=== PATIENT | female | born 1970 | race African-American/Black ===

== ENCOUNTER 2024-02-29 10:14 | Outpatient (AMB) | payer OTHER, SELFPAY ==
--- NOTE | 2024-02-29 10:13 | MHC.PC.OV ---
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 Intake Note: New patient visit Disability Representative Required: No Allergies No Known Allergies Allergy (Verified 02/29/24 10:13) Medication List - Last Reconciled 02/29/24 by Ronda Perera PA-C hydrochlorothiazide 12.5 mg PO DAILY tirzepatide (weight loss) (Zepbound) mg subcut Tobacco use date assessed: 02/29/24 Dental Screening Dental Screen Date: 02/29/24 Did you have a dental visit in the last 12 months?: Yes Did you have a dental problem in the last 6 months where you did not have access to dental care?: No Was dental information given to patient?: Patient has dentist 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 She is transferring from [facility] and was last seen by myself in August. I had tried ordering her Mounjaro, Ozempic and will go away all of which were denied. She was ultimately referred to the weight loss center and started on Zepbound. She has been on this since October and she has lost 35 lb. She is tolerating this very well. Her goal is to lose 50 lb. CV: Blood pressure today in the office is 102/74. She is on hydrochlorothiazide 12.5 mg. Colonoscopy: 10/01/2020, due in 2026 Mammogram: August 2023- utd, follows with [facility] Pap: UTD, [facility] in Nov 2022- due in 5 years, just got IUD out Mother has a hx of lung and breast ca. Pt has been referred to genetics. 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 Exercising and eating healthy. Daughter is getting in March. [facility] Medical History (Updated 02/29/24 @ 11:32 by Ronda Perera PA-C) Anemia Vitamin D deficiency Tubular adenoma of colon Obesity with serious comorbidity Microcalcifications of the breast Hyperthyroidism HTN (hypertension) Surgical History (Updated 02/29/24 @ 10:17 by Meghann Bernal CMA) History of colonoscopy Family History (Updated 02/29/24 @ 10:18 by Meghann Bernal CMA) Mother Breast cancer Father Hypertension Sister Hypertension Social History Housing: House Patient Tobacco Use Status: Never used Tobacco e-Cigarette/Vaping Use: Never Used Second Hand Smoke Exposure: No service: No Current occupational status: employed 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 1. Little interest or pleasure in doing things: not at all 2. Feeling down, depressed, or hopeless: not at all 3. Trouble falling or staying asleep, or sleeping too much: not at all 4. Feeling tired or having little energy: not at all 5. Poor appetite or overeating: not at all 6. Feeling bad about yourself - or that you are a failure or have let yourself or your family down: not at all 7. Trouble concentrating on things, such as reading the newspaper or watching television: not at all 8. Moving or speaking so slowly that other people could have noticed. Or the opposite - being so fidgety or restless that you have been moving around a lot more than usual: not at all 9. Thoughts that you would be better off or of hurting yourself in some way: not at all Total score: 0 Depression Screening Interpretation: Negative Depression Screening Done: Yes [id number] - PHQ-9 Billing: Yes Source: Developed by Drs. Alber Jimenez, Mariella Barrientos, Speedy Calvin and colleagues, with an educational manuel from [employer]. Thrive Questionnaire Date Thrive assessed: 02/29/24 I am a: Patient What is your living situation today?: I have a steady place to live Within the past 12 months, did the food you bought not last and you didn't have the money to get more?: Never true Within the past 12 months, did you worry whether your food would run out before you got money to buy more?: Never true Do you have trouble paying for medicines?: No Do you have trouble getting transportation to medical appointments?: No Do you have trouble paying your heating and electricity bill?: No Do you have trouble taking care of your child, family member or friend?: No Do you have trouble with day-to-day activities such as bathing, preparing meals, shopping, managing finances, etc.?: No Are you currently unemployed and looking for a job?: No Are you interested in more education?: No Please select the resources that you would like help with: None Currently or been in a relationship where the following occur: no concerns reported THRIVE Score: 0 AUDIT C Alcohol Use Questionnaire (AUDIT-C) 1. How often do you have a drink containing alcohol?: Monthly or less 2. How many drinks containing alcohol do you have on a typical day when you are drinking?: 1 or 2 3. How often do you have six or more drinks on one occasion?: Never Total Score: 1 Score Reviewed/Action Taken: Yes EVER-7 AMB Questionnaire EVER-7 Date EVER - 7 assessed: 02/29/24 Feeling nervous, anxious, or on edge: 0 = Not at all Not being able to stop or control worryin = Not at all Worrying too much about different things: 0 = Not at all Trouble relaxin = Not at all Being so restless that it is hard to sit still: 0 = Not at all Becoming easily annoyed or irritable: 0 = Not at all Feeling afraid as if something awful might happen: 0 = Not at all Total EVER-7 score (0-4 normal; 5-9 mild; 10-14 moderate; 15-21 severe): 0 Source: Developed by Drs. Alber Jimenez, Mariella Barrientos, Speedy Calvin and colleagues, with an educational manuel from [employer]. EVER-7 Assessment Billing EVER-7 Assessment Tool: EVER-7 Assessment 50236 Physical exam (Primary Care) Vital Signs: Last Vital Signs Temp 98.4 F 02/29/24 10:27 Pulse 87 02/29/24 10:27 Resp 14 02/29/24 10:27 BP 102/74 02/29/24 10:27 Pulse Ox 100 02/29/24 10:27 Oxygen Delivery Method Room Air 02/29/24 10:27 BMI result Body Mass Index 31.4 Tobacco/Smoking Status: Tobacco use Status Tobacco use date assessed 02/29/24 02/29/24 10:18 Patient Tobacco Use Status Never used Tobacco 02/29/24 10:18 e-Cigarette/Vaping Use Never Used 02/29/24 10:18 Depression Screening Interpretation: Negative Currently or been in a relationship where the following occur: no concerns reported Const Orientation/consciousness: patient oriented x3 HENMT Ears: hearing grossly normal bilaterally and TM's normal bilaterally General nose exam: No nasal polyps present Face and sinus: Yes sinuses nontender Mouth: Normal oral and palatal mucosa present Eyes Pupils: Equal, round and reactive pupils present EOM: EOMs intact bilaterally Neck Neck: Yes full ROM and Yes no lymphadenopathy Thyroid: Thyroid normal Chest Chest palpation & inspection: normal inspection of the chest Resp Auscultation: clear to auscultation bilaterally Cardio Rate: regular rate Rhythm: regular rhythm Heart sounds: S1 normal heart sound present and S2 normal heart sound present Peripheral pulses: Peripheral pulses 2+ throughout GI Other: Soft, nontender Auscultation: normal bowel sounds Rectal Exam - Female: deferred General: Yes no CVA tenderness Back/Spine/Pelvis Other: Nontender Back: no CVA tenderness Skin General skin exam: no rashes or lesions noted Neuro General: patient oriented x3, gait normal, CN's II-XI intact bilaterally and deep tendon reflexes 2+ bilaterally Cranial nerves: Yes Equal, round and reactive pupils present Motor exam (neuro): 5/5 motor strength present throughout Sensory Exam: double simultaneous stimulation for sensation normal Coordination: [id number] test normal and Romberg test negative Extrem General: Yes normal to inspection and Yes full ROM Psych Affect: normal affect Attitude: cooperative Thought process: Normal thought process present Thought content: Normal thought content present Insight: Good insight present (Psych) Judgement: Good judgement present (Psych) Assessment and Plan Assessment & Plan (1) Routine general medical examination at a health care facility: Code(s): Z00.00 - Encounter for general adult medical examination without abnormal findings Plan: reviewed labs ordered discussed f/u with genetics (2) HTN (hypertension): Code(s): I10 - Essential (primary) hypertension Qualifiers: Hypertension type: primary hypertension Qualified Code(s): I10 - Essential (primary) hypertension Plan: wnl. continue current plan. monitor at home with weight loss discussed possibly needing to d/c med (3) Vitamin D deficiency: Code(s): E55.9 - Vitamin D deficiency, unspecified Plan: labs ordered (4) Anemia: Code(s): D64.9 - Anemia, unspecified Qualifiers: Anemia type: unspecified type Qualified Code(s): D64.9 - Anemia, unspecified Plan: last labs showed mild anemia. will repeat Orders: Orders Comprehensive [place]. Panel Fast Today D64.9 - Anemia, unspecified, E55.9 - Vitamin D deficiency, unspecified, I10 - Essential (primary) hypertension, Z00.00 - Encounter for general adult medical examination without abnormal findings IRON PROFILE Today D64.9 - Anemia, unspecified, E55.9 - Vitamin D deficiency, unspecified, I10 - Essential (primary) hypertension, Z00.00 - Encounter for general adult medical examination without abnormal findings TSH reflex Free T4 Today D64.9 - Anemia, unspecified, E55.9 - Vitamin D deficiency, unspecified, I10 - Essential (primary) hypertension, Z00.00 - Encounter for general adult medical examination without abnormal findings Ferritin Today D64.9 - Anemia, unspecified, E55.9 - Vitamin D deficiency, unspecified, I10 - Essential (primary) hypertension, Z00.00 - Encounter for general adult medical examination without abnormal findings Vitamin B12 and Folate Today D64.9 - Anemia, unspecified, E55.9 - Vitamin D deficiency, unspecified, I10 - Essential (primary) hypertension, Z00.00 - Encounter for general adult medical examination without abnormal findings Complete Blood Count Auto Diff Today D64.9 - Anemia, unspecified, E55.9 - Vitamin D deficiency, unspecified, I10 - Essential (primary) hypertension, Z00.00 - Encounter for general adult medical examination without abnormal findings Lipid Panel Today D64.9 - Anemia, unspecified, E55.9 - Vitamin D deficiency, unspecified, I10 - Essential (primary) hypertension, Z00.00 - Encounter for general adult medical examination without abnormal findings Vitamin D 25-OH Total Today E55.9 - Vitamin D deficiency, unspecified Coding Level of Care Code Est Pt Prev Care 40-64y(99284) Diagnoses Routine general medical examination at a health care facility Z00.00 Primary hypertension I10 Hypertension type: primary hypertension Vitamin D deficiency E55.9 Anemia, unspecified type D64.9 Anemia type: unspecified type Additional Codes EVER-7 Assessment Billing - EVER-7 Assessment Tool: EVER-7 Assessment 57014 ([id number])
[2024-02-29 10:27] VITALS: BP 102/74; PULSE 87; RESP 14; TEMP 36.9; O2SAT 100; BMI 31.4
== END 2024-02-29 11:11 | disposition home or self-care (01) ==
PROVIDERS: PCP Physician Assistant; Visit Provider Physician Assistant
DX: Z00.00 Encounter for general adult medical examination without abnormal findings (principal); I10 Essential (primary) hypertension; E55.9 Vitamin D deficiency, unspecified; D64.9 Anemia, unspecified
CPT/HCPCS: 99386; 99396

== ENCOUNTER 2024-02-29 11:19 | Outpatient (REF) | payer OTHER, SELFPAY ==
[2024-02-29 14:50] LABS: Basophils Percent Auto 0.7 % (0-2); Eosinophils Absolute Auto 0.1 X10*3/uL (0.0-0.4); Eosinophils Percent Auto 1.4 % (0-4); Hematocrit 37.2 % (37.0-47.0); Hemoglobin 12.4 g/dl (12.0-16.0); Imm Gran Abs Auto 0.01 X10*3/uL (0.00-0.03); Imm Gran Pct Auto 0.2 % (0.0-0.4); Lymphocytes Absolute Auto 2.2 X10*3/uL (1.2-4.9); Lymphocytes Percent Auto 37.7 % (20-40); MANUAL DIFF FLAG SCAN; Mean Corpuscular HGB Conc 33.3 g/dl (31.0-35.0); Mean Corpuscular Hemoglobin 29.9 pg (27.0-33.0); Mean Corpuscular Volume 89.6 fL (80.0-98.0); Monocytes Absolute Auto 0.3 X10*3/uL (0.1-1.2); Monocytes Percent Auto 4.7 % (2-11); Neutrophils Absolute Auto 3.3 x10*3/uL (2.0-8.3); Neutrophils Percent Auto 55.3 % (45-73); PLT CLUMP 1; Red Blood Count 4.15 X10*6/uL (4.20-5.50); Red Cell Distribution Width 14.6 % (11.0-16.0); SCAN SMEAR FLAG 1
[2024-02-29 15:28] LABS: Alanine Aminotransferase 14 U/L (0-31); Albumin Level 4.7 g/dL (3.5-5.0); Alkaline Phosphatase 49 U/L (39-117); Anion Gap 17 (12-20); Aspartate Amino Transferase 19 U/L (5-31); Bilirubin Total 0.5 mg/dL (0.0-1.0); Blood Urea Nitrogen 23 mg/dL (9-16); Calcium 10.5 mg/dL (8.4-10.2); Carbon Dioxide 24 mmol/L (22-29); Chloride 104 mmol/L (96-108); Cholesterol 226 mg/dL (<200); Estimated Glomerular Filt Rate 53; Glucose Fasting 71 mg/dL (60-99); HDL Cholesterol 59 mg/dL (>40); Iron 61 mcg/dL (30-160); LDL Cholesterol Calculated 153 mg/dL (<100); Percent Iron Saturation 22 % (15-50); Potassium 3.5 mmol/L (3.3-5.1); Sodium 141 mmol/L (135-145); Total Iron Binding Capacity 273 mcg/dL (228-428); Total Protein 8.5 g/dL (6.5-8.0); Triglycerides 72 mg/dL (<150); Unsaturated Iron Binding 212 ug/dL
[2024-02-29 15:47] LABS: Ferritin 343 ng/mL (10-250); TSH reflex Free T4 1.21 uIU/mL (0.32-4.0); Vitamin D 25-OH Total 43.4 ng/mL (>30)
[2024-02-29 15:50] LABS: Folate 7.4 ng/mL (> or = 4.0); Mean Platelet Volume 12.9 fL (9.4-12.3); Platelet Count 193 X10*3/uL (160-400); Vitamin B12 488 pg/mL (200-900); White Blood Count 5.9 X10*3/uL (4.8-10.8)
[2024-02-29 15:51] LABS: SLIDE REVIEW VERIFIED
== END 2024-02-29 11:20 | disposition home or self-care (01) ==
LOC: HO.WFDLDS 11:19
PROVIDERS: Visit Provider Physician Assistant
DX: Z00.00 Encounter for general adult medical examination without abnormal findings (principal); D64.9 Anemia, unspecified; I10 Essential (primary) hypertension; E55.9 Vitamin D deficiency, unspecified
CPT/HCPCS: 36415; 80053; 80061; 82306; 82607; 82728; 82746; 83540; 84443; 85025

== ENCOUNTER 2024-06-12 12:56 | Outpatient (AMB) | payer OTHER, SELFPAY ==
--- NOTE | 2024-06-12 13:01 | MHC.PC.OV ---
Vital Signs 06/12/24 13:06 Height 5 ft 2.24 in Weight 155 lb 6 oz BMI 28.2 BP 104/68 Blood Pressure Location Rt brachial Position Sitting Respiration 12 Pulse 86 Pulse Source Pulse Oximeter Temp 99.7 F Temp Source Oral Pulse Oximetry (%) 97 Oxygen Delivery Method Room Air Intake Visit Reasons: Stomach issues Allergies No Known Allergies Allergy (Verified 02/29/24 10:13) Medication List - Last Reconciled 06/12/24 by Ronda Perera PA-C hydrochlorothiazide 12.5 mg PO DAILY tirzepatide (weight loss) (Zepbound) mg subcut Tobacco use date assessed: 02/29/24 Dental Screening Dental Screen Date: 02/29/24 HPI Stomach issues HPI Details Patient is a 54-year-old female who presents today for an acute visit regarding abdominal pain. She states stomach started bothering her yesterday morning and got worse as the day went on. She had to go home from work. She states when she gets the pain it comes in waves for a few minutes and feels intense like labor pains. She states the pain lasts for a few minutes like intense cramping throughout her abdomen then it subsides for a few minutes and returns. No associated bowel movements. She denies any n/v/ diarrhea or constipation. She does note decreased appetite. She states she went to urgent care yesterday. She had a urine test which was neg per pt. She states the pain is in the mid abdomen. No flank pain. Last bowel movement was yesterday afternoon and normal for her. No fever. She did have a little bit of chills yesterday. No muscle aches. She states that this happened last month and the month before. The pain has subsided today but still is present. She has not eaten much besides a saltine cracker and a pickle. colonoscopy UTD. [facility] UTD in October. Her last labs did show a decreased kidney function, elevated calcium, elevated protein and ferritin. She was supposed to return to get these done but states that she forgot. She has been followed with the weight loss clinic and has been on Zepbound x 9 months and is taking it every other week on maintenance dosage. She has further lost another 20 lbs since I last saw her. CV: Blood pressure today in the office is 102/68. She is currently on hydrochlorothiazide 12.5 mg. PFSH Medical History (Updated 06/12/24 @ 13:21 by Ronda Perera PA-C) Obesity due to excess calories with serious comorbidity Dyslipidemia Anemia Vitamin D deficiency Tubular adenoma of colon Obesity with serious comorbidity Microcalcifications of the breast Hyperthyroidism HTN (hypertension) Surgical History (Updated 02/29/24 @ 10:17 by Meghann Bernal CMA) History of colonoscopy Family History (Updated 02/29/24 @ 10:18 by Meghann Bernal CMA) Mother Breast cancer Father Hypertension Sister Hypertension Social History Housing: House Patient Tobacco Use Status: Never used Tobacco e-Cigarette/Vaping Use: Never Used Second Hand Smoke Exposure: No service: No Current occupational status: employed 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 1. Little interest or pleasure in doing things: not at all 2. Feeling down, depressed, or hopeless: not at all 3. Trouble falling or staying asleep, or sleeping too much: not at all 4. Feeling tired or having little energy: not at all 5. Poor appetite or overeating: not at all 6. Feeling bad about yourself - or that you are a failure or have let yourself or your family down: not at all 7. Trouble concentrating on things, such as reading the newspaper or watching television: not at all 8. Moving or speaking so slowly that other people could have noticed. Or the opposite - being so fidgety or restless that you have been moving around a lot more than usual: not at all 9. Thoughts that you would be better off or of hurting yourself in some way: not at all Total score: 0 Source: Developed by Drs. Alber Jimenez, Mariella Barrientos, Speedy Calvin and colleagues, with an educational manuel from [employer]. Thrive Questionnaire Date Thrive assessed: 02/29/24 I am a: Patient What is your living situation today?: I have a steady place to live Within the past 12 months, did the food you bought not last and you didn't have the money to get more?: Never true Within the past 12 months, did you worry whether your food would run out before you got money to buy more?: Never true Do you have trouble paying for medicines?: Yes Do you have trouble getting transportation to medical appointments?: No Do you have trouble paying your heating and electricity bill?: No Do you have trouble taking care of your child, family member or friend?: No Do you have trouble with day-to-day activities such as bathing, preparing meals, shopping, managing finances, etc.?: No Are you currently unemployed and looking for a job?: No Are you interested in more education?: No Please select the resources that you would like help with: None Currently or been in a relationship where the following occur: No concerns reported THRIVE Score: 0 AUDIT C Alcohol Use Questionnaire (AUDIT-C) 1. How often do you have a drink containing alcohol?: Monthly or less 2. How many drinks containing alcohol do you have on a typical day when you are drinking?: 1 or 2 3. How often do you have six or more drinks on one occasion?: Never Total Score: 1 EVER-7 AMB Questionnaire EVER-7 Date EVER - 7 assessed: 02/29/24 Feeling nervous, anxious, or on edge: 0 = Not at all Not being able to stop or control worryin = Not at all Worrying too much about different things: 0 = Not at all Trouble relaxin = Not at all Being so restless that it is hard to sit still: 0 = Not at all Becoming easily annoyed or irritable: 0 = Not at all Feeling afraid as if something awful might happen: 0 = Not at all Total EVER-7 score (0-4 normal; 5-9 mild; 10-14 moderate; 15-21 severe): 0 Source: Developed by Drs. Alber Jimenez, Mariella Barrientos, Speedy Calvin and colleagues, with an educational manuel from [employer]. Physical exam (Primary Care) Tobacco/Smoking Status: Tobacco use Status Tobacco use date assessed 02/29/24 02/29/24 10:18 Patient Tobacco Use Status Never used Tobacco 02/29/24 10:18 e-Cigarette/Vaping Use Never Used 02/29/24 10:18 Thrive Assessment: Date of Thrive Assessment Date Thrive assessed 02/29/24 02/29/24 11:20 Currently or been in a relationship where the following occur: No concerns reported Const Orientation/consciousness: patient oriented x3 HENMT Ears: hearing grossly normal bilaterally Neck Thyroid: Thyroid normal Lymphatic: no lymphadenopathy noted Resp Auscultation: clear to auscultation bilaterally Cardio Rate: regular rate Rhythm: regular rhythm Heart sounds: S1 normal heart sound present and S2 normal heart sound present GI Inspection: Yes normal to inspection Palpation (GI): Soft to palpation and Other GI palpation findings present (nontender, no cva tenderness) Auscultation: normoactive bowel sounds Rectal Exam - Female: deferred Skin General skin exam: no rashes or lesions noted Neuro General: patient oriented x3, gait normal and no focal motor deficits Results Reviewed Results Reviewed: Laboratory Tests 02/29/24 11:20 WBC 5.9 RBC 4.15 L Hgb 12.4 Hct 37.2 Plt Count 193 Sodium 141 Potassium 3.5 Chloride 104 Carbon Dioxide 24 Anion Gap 17 Creatinine 1.07 Estimated GFR 53 Fasting Glucose 71 Calcium 10.5 H Iron 61 TIBC 273 % Saturation 22 Unsat Iron Binding 212 Ferritin 343 H Total Bilirubin 0.5 AST 19 ALT 14 Alkaline Phosphatase 49 Total Protein 8.5 H Albumin 4.7 TSH 1.21 Assessment and Plan Assessment & Plan (1) HTN (hypertension): Code(s): I10 - Essential (primary) hypertension Qualifiers: Hypertension type: primary hypertension Qualified Code(s): I10 - Essential (primary) hypertension Plan: d/c hctz given weight loss and lower bps return 1 month to be reassessed (2) Decreased GFR: Code(s): R94.4 - Abnormal results of kidney function studies Plan: bmp was ordered and advised to get this done today will check urine (3) Hypercalcemia: Code(s): E83.52 - Hypercalcemia Plan: advised to repeat labs today (4) Generalized abdominal pain: Code(s): R10.84 - Generalized abdominal pain Plan: Pain is improved today. She still has small waves of the pain. I have ordered a CT of the abdomen and pelvis given that this has happened a few times now. Labs ordered today. We will follow up pending test results. We did discuss coming off of Zepbound to see if that helps. We will follow up pending test results. She will return in 1 month. Sooner if needed. Patient understands and agrees with the plan. Orders: Orders Microalbumin, Random (w Creat) Today E83.52 - Hypercalcemia, I10 - Essential (primary) hypertension, R94.4 - Abnormal results of kidney function studies TSH reflex Free T4 Today E83.52 - Hypercalcemia, I10 - Essential (primary) hypertension, R94.4 - Abnormal results of kidney function studies Vitamin D 1,25 dihydroxy Today E83.52 - Hypercalcemia, I10 - Essential (primary) hypertension, R94.4 - Abnormal results of kidney function studies CT abdomen pelvis wo/w IV con Today R10.84 - Generalized abdominal pain Lipase Today R10.84 - Generalized abdominal pain Complete Blood Count Auto Diff Today E83.52 - Hypercalcemia, I10 - Essential (primary) hypertension, R94.4 - Abnormal results of kidney function studies Ferritin Today E83.52 - Hypercalcemia, I10 - Essential (primary) hypertension, R94.4 - Abnormal results of kidney function studies Basic Metabolic Panel Today E83.52 - Hypercalcemia, I10 - Essential (primary) hypertension, R94.4 - Abnormal results of kidney function studies Liver Panel Today E83.52 - Hypercalcemia, I10 - Essential (primary) hypertension, R79.89 - Other specified abnormal findings of blood chemistry, R94.4 - Abnormal results of kidney function studies Calcium, Ionized Today E83.52 - Hypercalcemia, I10 - Essential (primary) hypertension, R94.4 - Abnormal results of kidney function studies Parathyroid Hormone Intact Today E83.52 - Hypercalcemia, I10 - Essential (primary) hypertension, R94.4 - Abnormal results of kidney function studies Medications: Discontinued hydrochlorothiazide Discontinued Reason: Doctor's Order 12.5 mg PO DAILY 90 tabs 3RF Coding Level of Care Code Est Pt Level 4 (56281) Complex EM visit Add On G2211 Diagnoses Primary hypertension I10 Hypertension type: primary hypertension Decreased GFR R94.4 Hypercalcemia E83. Generalized abdominal pain R10.84
--- NOTE | 2024-06-12 13:02 | MHC.PC.OV ---
Vital Signs 06/12/24 13:06 Height 5 ft 2.24 in Weight 155 lb 6 oz BMI 28.2 BP 104/68 Blood Pressure Location Rt brachial Position Sitting Respiration 12 Pulse 86 Pulse Source Pulse Oximeter Temp 99.7 F Temp Source Oral Pulse Oximetry (%) 97 Oxygen Delivery Method Room Air Intake Visit Reasons: Stomach issues Intake Note: Sharp pain in stomach. Went to Urgent care and had no UTI. Powerhouse Tender Required: No Is last menstrual period known: No Allergies No Known Allergies Allergy (Verified 02/29/24 10:13) Tobacco use date assessed: 02/29/24 Dental Screening Dental Screen Date: 02/29/24 [facility] Medical History (Updated 03/06/24 @ 08:11 by Ronda Perera PA-C) Obesity due to excess calories with serious comorbidity Dyslipidemia Anemia Vitamin D deficiency Tubular adenoma of colon Obesity with serious comorbidity Microcalcifications of the breast Hyperthyroidism HTN (hypertension) Surgical History (Updated 02/29/24 @ 10:17 by Meghann Bernal CMA) History of colonoscopy Family History (Updated 02/29/24 @ 10:18 by Meghann Bernal CMA) Mother Breast cancer Father Hypertension Sister Hypertension Social History Housing: House Patient Tobacco Use Status: Never used Tobacco e-Cigarette/Vaping Use: Never Used Second Hand Smoke Exposure: No service: No Current occupational status: employed 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 1. Little interest or pleasure in doing things: not at all 2. Feeling down, depressed, or hopeless: not at all 3. Trouble falling or staying asleep, or sleeping too much: not at all 4. Feeling tired or having little energy: not at all 5. Poor appetite or overeating: not at all 6. Feeling bad about yourself - or that you are a failure or have let yourself or your family down: not at all 7. Trouble concentrating on things, such as reading the newspaper or watching television: not at all 8. Moving or speaking so slowly that other people could have noticed. Or the opposite - being so fidgety or restless that you have been moving around a lot more than usual: not at all 9. Thoughts that you would be better off or of hurting yourself in some way: not at all Total score: 0 Source: Developed by Drs. Alber Jimenez, Mariella Barrientos, Speedy Calvin and colleagues, with an educational manuel from [employer]. Thrive Questionnaire Date Thrive assessed: 02/29/24 I am a: Patient What is your living situation today?: I have a steady place to live Within the past 12 months, did the food you bought not last and you didn't have the money to get more?: Never true Within the past 12 months, did you worry whether your food would run out before you got money to buy more?: Never true Do you have trouble paying for medicines?: Yes Do you have trouble getting transportation to medical appointments?: No Do you have trouble paying your heating and electricity bill?: No Do you have trouble taking care of your child, family member or friend?: No Do you have trouble with day-to-day activities such as bathing, preparing meals, shopping, managing finances, etc.?: No Are you currently unemployed and looking for a job?: No Are you interested in more education?: No Please select the resources that you would like help with: None Currently or been in a relationship where the following occur: No concerns reported THRIVE Score: 0 AUDIT C Alcohol Use Questionnaire (AUDIT-C) 1. How often do you have a drink containing alcohol?: Monthly or less 2. How many drinks containing alcohol do you have on a typical day when you are drinking?: 1 or 2 3. How often do you have six or more drinks on one occasion?: Never Total Score: 1 EVER-7 AMB Questionnaire EVER-7 Date EVER - 7 assessed: 02/29/24 Feeling nervous, anxious, or on edge: 0 = Not at all Not being able to stop or control worryin = Not at all Worrying too much about different things: 0 = Not at all Trouble relaxin = Not at all Being so restless that it is hard to sit still: 0 = Not at all Becoming easily annoyed or irritable: 0 = Not at all Feeling afraid as if something awful might happen: 0 = Not at all Total EVER-7 score (0-4 normal; 5-9 mild; 10-14 moderate; 15-21 severe): 0 Source: Developed by Drs. Alber Jimenez, Mariella Barrientos, Speedy Calvin and colleagues, with an educational manuel from [employer]. Physical exam (Primary Care) Tobacco/Smoking Status: Tobacco use Status Tobacco use date assessed 02/29/24 02/29/24 10:18 Patient Tobacco Use Status Never used Tobacco 02/29/24 10:18 e-Cigarette/Vaping Use Never Used 02/29/24 10:18 Thrive Assessment: Date of Thrive Assessment Date Thrive assessed 02/29/24 02/29/24 11:20 Currently or been in a relationship where the following occur: No concerns reported Coding
[2024-06-12 13:06] VITALS: BP 104/68; PULSE 86; RESP 12; TEMP 37.6; O2SAT 97; BMI 28.2
== END 2024-06-12 15:18 | disposition home or self-care (01) ==
PROVIDERS: PCP Physician Assistant; Visit Provider Physician Assistant
DX: I10 Essential (primary) hypertension (principal); R94.4 Abnormal results of kidney function studies; E83.52 Hypercalcemia; R10.84 Generalized abdominal pain
CPT/HCPCS: 99214

== ENCOUNTER 2024-06-12 13:28 | Outpatient (REF) | payer OTHER, SELFPAY ==
[2024-06-12 15:04] LABS: Parathyroid Hormone Intact 70.3 pg/mL (8.7-77.1)
[2024-06-12 15:21] LABS: Alanine Aminotransferase 16 U/L (0-31); Albumin Level 4.5 g/dL (3.5-5.0); Alkaline Phosphatase 51 U/L (39-117); Anion Gap 16 (12-20); Aspartate Amino Transferase 15 U/L (5-31); Bilirubin Direct 0.1 mg/dL (0.0-0.5); Bilirubin Total 0.4 mg/dL (0.0-1.0); Blood Urea Nitrogen 17 mg/dL (9-16); Calcium 10.5 mg/dL (8.4-10.2); Carbon Dioxide 25 mmol/L (22-29); Chloride 101 mmol/L (96-108); Estimated Glomerular Filt Rate 48; Glucose Random 94 mg/dL (60-115); Lipase 32 U/L (8-78); Potassium 3.6 mmol/L (3.3-5.1); Sodium 138 mmol/L (135-145); Total Protein 8.3 g/dL (6.5-8.0)
[2024-06-12 15:23] LABS: Ferritin 376 ng/mL (10-250); TSH reflex Free T4 1.28 uIU/mL (0.32-4.0)
[2024-06-12 18:09] LABS: Microalbum/Creatinine Ratio Ur 9.1 ug/mg cr (<30)
[2024-06-14 15:59] LABS: Calcium, Ionized 5.3 mg/dL (4.7-5.5)
[2024-06-16 15:28] LABS: VITAMIN D (1,25 OH) D3 32 pg/mL; Vit D (1,25-Dihydroxy) Total 32 pg/mL (18-72); Vitamin D (1,25 OH) D2 <8 pg/mL
== END 2024-06-12 13:29 | disposition home or self-care (01) ==
LOC: HO.WFDLDS 13:28
PROVIDERS: Visit Provider Physician Assistant
DX: I10 Essential (primary) hypertension (principal); R94.4 Abnormal results of kidney function studies; E83.52 Hypercalcemia; R79.89 Other specified abnormal findings of blood chemistry; R10.84 Generalized abdominal pain
CPT/HCPCS: 36415; 80048; 80076; 82043; 82330; 82570; 82652; 82728; 83690; 83970; 84443

== ENCOUNTER 2024-06-19 16:03 | Outpatient (REF) | payer OTHER, SELFPAY ==
[2024-06-19 16:28] LABS: MANUAL DIFF FLAG NO
[2024-06-19 17:24] LABS: Basophils Percent Auto 0.5 % (0-2); Eosinophils Absolute Auto 0.1 X10*3/uL (0.0-0.4); Eosinophils Percent Auto 1.4 % (0-4); Hematocrit 34.1 % (37.0-47.0); Imm Gran Abs Auto 0.03 X10*3/uL (0.00-0.03); Imm Gran Pct Auto 0.4 % (0.0-0.4); Lymphocytes Absolute Auto 2.3 X10*3/uL (1.2-4.9); Lymphocytes Percent Auto 30.9 % (20-40); Mean Corpuscular HGB Conc 32.3 g/dl (31.0-35.0); Mean Platelet Volume 12.7 fL (9.4-12.3); Monocytes Absolute Auto 0.4 X10*3/uL (0.1-1.2); Monocytes Percent Auto 5.2 % (2-11); Neutrophils Absolute Auto 4.5 x10*3/uL (2.0-8.3); Neutrophils Percent Auto 61.6 % (45-73); Platelet Count 174 X10*3/uL (160-400); Red Blood Count 3.79 X10*6/uL (4.20-5.50); Red Cell Distribution Width 14.4 % (11.0-16.0); White Blood Count 7.4 X10*3/uL (4.8-10.8)
== END 2024-06-19 16:04 | disposition home or self-care (01) ==
LOC: HO.LAB 16:03
PROVIDERS: PCP Physician Assistant; Visit Provider Physician Assistant
DX: R94.4 Abnormal results of kidney function studies (principal); E83.52 Hypercalcemia; I10 Essential (primary) hypertension
CPT/HCPCS: 36415; 85025

== ENCOUNTER 2024-07-02 08:12 | Outpatient (REF) | payer OTHER, SELFPAY ==
--- NOTE | ~2024-07-02 | US_ITS ---
EXAMINATION: US ABDOMEN COMPLETE CLINICAL INFORMATION: Generalized abdominal pain. COMPARISON: None available. TECHNIQUE: Real-time imaging of the abdominal viscera. FINDINGS: PANCREAS: Normal. ABDOMINAL AORTA: The proximal, mid, and distal segments are normal in caliber. INFERIOR VENA CAVA: Visualized portions are normal. LIVER: The liver is normal in size. The liver contour is normal. Parenchymal echogenicity is normal. A 1.5 x 1.2 x 1.5 cm echogenic mass in the liver with ultrasound characteristics suggestive of a benign cavernous hemangioma. There is no intrahepatic biliary duct dilatation seen. GALLBLADDER: Normal. The gallbladder is physiologically distended without evidence of stones, sludge, polyps, wall thickening or pericholecystic fluid. COMMON BILE DUCT: Normal in caliber measuring 0.2 cm in diameter. RIGHT KIDNEY: Normal. No hydronephrosis. No renal calculi or focal parenchymal lesions. The kidney measures 10.2 cm in maximum dimension. LEFT KIDNEY: Normal. No hydronephrosis. No renal calculi or focal parenchymal lesions. The kidney measures 8.7 cm in maximum dimension. SPLEEN: Normal. The spleen measures 7.4 cm in maximum dimension. FREE FLUID: None. US/US abdomen complete IMPRESSION: 1. A cause for the patient's abdominal pain has not been found. 2. Incidental note made of a 1.5 cm echogenic mass in the liver with ultrasound characteristics suggestive of a benign cavernous hemangioma. If confirmation is needed, MRI could be performed. Electronically signed by: Raghav Jara MD 08/15/2024 01:46 PM [facility] [place]
== END 2024-07-02 08:13 | disposition home or self-care (01) ==
LOC: HO.US 08:12
PROVIDERS: PCP Physician Assistant; Visit Provider Physician Assistant
DX: R10.84 Generalized abdominal pain (principal); R94.4 Abnormal results of kidney function studies
CPT/HCPCS: 76700

== ENCOUNTER 2024-07-11 10:05 | Outpatient (AMB) | payer OTHER, SELFPAY ==
--- NOTE | 2024-07-11 10:18 | HO.NEPHOV ---
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 She is 54 years of age who has been in good health. She had high BMI and had hypertension at that time. She was taking hydrochlorothiazide and monitors her blood pressure closely at home. She is not a diabetic and does not have any retinopathy, proteinuria or neuropathy. She has been on Zepbound and has lost significant amount of weight. Her blood pressure started dropping with weight loss and her hydrochlorothiazide recently has been discontinued. She denies any carotid artery disease, CVA, ANDRES, PAD, CAD or CHF. She does not take any excessive nonsteroidal anti-inflammatories. She has no history of dry eyes and dry mouth or generalized joint pains. She does not get recurrent urinary infections. She has not taken any antibiotics recently. She tries to maintain good hydration. She has no hearing issues, sinusitis, epistaxis, photosensitivity, urinary symptoms, history of renal calculus, flank pain, new bone pain. She has no history of hypercalcemia. She is concerned about her rising serum creatinine . She mentioned that she had an ultrasound of her abdomen recently, results of which were not available at the time this visit. She is clinically well and was without any specific complaints [facility] Medical History (Updated 07/11/24 @ 10:49 by Elvis Faustin MD) Obesity due to excess calories with serious comorbidity Dyslipidemia Anemia Vitamin D deficiency Tubular adenoma of colon Obesity with serious comorbidity Microcalcifications of the breast Hyperthyroidism HTN (hypertension) Surgical History History of colonoscopy Family History Mother Breast cancer Father Hypertension Sister Hypertension Social History Housing: House Patient Tobacco Use Status: Never used Tobacco e-Cigarette/Vaping Use: Never Used Second Hand Smoke Exposure: No service: No Current occupational status: employed 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 [employer] Current occupational exposures/hazards: No Cognitive needs: No Hearing needs: No Vision needs: No Review of Systems Const All systems reviewed & are unremarkable except as noted in HPI and below Physical Exam Vital Signs: Last Vital Signs BP 132/80 07/11/24 10:19 BMI result Body Mass Index 28.9 Const General: comfortable and no acute distress Orientation/consciousness: patient oriented x3 HEENT Head: Yes normocephalic Mouth: Normal oral and palatal mucosa present Eyes EOM: EOMs intact bilaterally Neck Neck: Yes supple Resp Auscultation: clear to auscultation bilaterally Cardio Jugular venous distension: no JVD Rate: regular rate GI Palpation (GI): Soft to palpation Auscultation: normal bowel sounds General: Yes no CVA tenderness Back/Spine/Pelvis Back: no CVA tenderness Skin General skin exam: no rashes or lesions noted Neuro General: patient oriented x3 and moves all extremities Extrem General: Yes no pedal edema Results Reviewed Nephrology Results: Hgb 11.0 g/dl (12.0-16.0) L 06/19/24 WBC 7.4 X10*3/uL (4.8-10.8) 06/19/24 Plt Count 174 X10*3/uL (160-400) 06/19/24 Sodium 138 mmol/L (135-145) 06/12/24 Potassium 3.6 mmol/L (3.3-5.1) 06/12/24 Chloride 101 mmol/L (96-108) 06/12/24 Carbon Dioxide 25 mmol/L (22-29) 06/12/24 BUN 17 mg/dL (9-16) H 06/12/24 Creatinine 1.17 mg/dL (0.5-1.4) 06/12/24 Calcium 10.5 mg/dL (8.4-10.2) H 06/12/24 PTH Intact 70.3 pg/mL (8.7-77.1) 06/12/24 Urine Creatinine 230.30 mg/dL 06/12/24 Assessment & Plan Assessment & Plan (1) High serum creatine: Code(s): R79.89 - Other specified abnormal findings of blood chemistry Category: Medical Plan Vicky likely had mild GLADYS due to tubular injury sometime ago. Her thiazide has been discontinued. She is not known to have any proteinuria even when her BMI has been high. She has been on Zepbound which can cause GLADYS due to volume depletion and resultant tubular injury. She does not take any excessive nonsteroidal inflammatories. She denies any proteinuria, microscopic hematuria or pedal edema. She denied retinopathy. She has good urine output and there is no reason to suspect any obstructive uropathy. She has no history of renal calculus. She had a renal ultrasound, results of which were pending at the time of this office visit. I asked her to cut down sodium in the diet and maintain good hydration. I have ordered repeat renal functions and creatinine clearance. I did not make any medication changes today. She should continue to hold her Zepbound for now. Time spent retrieving all her past medical records, patient encounter and documentation 52 minutes. All questions answered. Follow-up appointment given. Orders: Orders Electrolytes 3 Weeks - Other specified abnormal findings of blood chemistry Creatinine Clearance Urine 24U 3 Weeks - Other specified abnormal findings of blood chemistry Creatinine 3 Weeks - Other specified abnormal findings of blood chemistry Blood Urea Nitrogen 3 Weeks - Other specified abnormal findings of blood chemistry Coding Level of Care Code New Pt Level 5 (55387) Diagnoses High serum creatine .
[2024-07-11 10:19] VITALS: BP 132/80; BMI 28.9
== END 2024-07-11 10:58 | disposition home or self-care (01) ==
PROVIDERS: PCP Physician Assistant; Visit Provider Internal Medicine Nephrology
DX: R79.89 Other specified abnormal findings of blood chemistry (principal)
CPT/HCPCS: 99204

== ENCOUNTER → 2024-07-11 10:05 | Outpatient (BNVA) | payer OTHER, SELFPAY | PROVIDERS: PCP Physician Assistant; Visit Provider Internal Medicine Nephrology ==

== ENCOUNTER 2024-07-27 09:10 | Outpatient (REF) | payer OTHER, SELFPAY ==
[2024-07-27 10:02] LABS: Basophils Percent Auto 0.4 % (0-2); Eosinophils Absolute Auto 0.2 X10*3/uL (0.0-0.4); Eosinophils Percent Auto 2.1 % (0-4); Hematocrit 30.9 % (37.0-47.0); Hemoglobin 9.9 g/dl (12.0-16.0); Imm Gran Abs Auto 0.08 X10*3/uL (0.00-0.03); Imm Gran Pct Auto 1.1 % (0.0-0.4); Lymphocytes Absolute Auto 2.4 X10*3/uL (1.2-4.9); Lymphocytes Percent Auto 33.2 % (20-40); MANUAL DIFF FLAG SCAN; Mean Corpuscular Hemoglobin 28.9 pg (27.0-33.0); Mean Corpuscular Volume 90.1 fL (80.0-98.0); Mean Platelet Volume 12.2 fL (9.4-12.3); Monocytes Absolute Auto 0.5 X10*3/uL (0.1-1.2); Monocytes Percent Auto 7.1 % (2-11); Neutrophils Absolute Auto 4.1 x10*3/uL (2.0-8.3); Neutrophils Percent Auto 56.1 % (45-73); PLT CLUMP 1; Red Blood Count 3.43 X10*6/uL (4.20-5.50); Red Cell Distribution Width 14.9 % (11.0-16.0); SCAN SMEAR FLAG 1; White Blood Count 7.3 X10*3/uL (4.8-10.8)
[2024-07-27 10:30] LABS: Alanine Aminotransferase 34 U/L (0-31); Albumin Level 3.9 g/dL (3.5-5.0); Alkaline Phosphatase 55 U/L (39-117); Anion Gap 12 (12-20); Aspartate Amino Transferase 26 U/L (5-31); Bilirubin Direct < 0.2 mg/dL (0.0-0.5); Bilirubin Total 0.2 mg/dL (0.0-1.0); Blood Urea Nitrogen 18 mg/dL (9-16); Calcium 9.2 mg/dL (8.4-10.2); Carbon Dioxide 25 mmol/L (22-29); Chloride 108 mmol/L (96-108); Estimated Glomerular Filt Rate 59; Glucose Random 77 mg/dL (60-115); Iron 53 mcg/dL (30-160); Percent Iron Saturation 23 % (15-50); Potassium 4.1 mmol/L (3.3-5.1); Sodium 141 mmol/L (135-145); Total Iron Binding Capacity 233 mcg/dL (228-428); Unsaturated Iron Binding 180 ug/dL
[2024-07-27 10:31] LABS: Anion Gap 12 (12-20); Blood Urea Nitrogen 18 mg/dL (9-16); Carbon Dioxide 26 mmol/L (22-29); Chloride 108 mmol/L (96-108); Estimated Glomerular Filt Rate 59; Platelet Count 162 X10*3/uL (160-400); Sodium 142 mmol/L (135-145)
[2024-07-27 10:32] LABS: SLIDE REVIEW VERIFIED
[2024-07-27 10:49] LABS: Ferritin 246 ng/mL (10-250)
[2024-07-27 10:59] LABS: Folate 5.8 ng/mL (> or = 4.0); Vitamin B12 497 pg/mL (200-900)
[2024-07-27 11:01] LABS: Creatinine, mg/dL 109.19
[2024-07-27 18:09] LABS: Creatinine (CrCl) 0.98 mg/dL (0.5-1.4); Creatinine Clearance 79.3 mL/min (85-125); Creatinine, 24Hr Urine 1.1 G/Day (1.0-2.0); Total Volume 24 Hour Urine 1025 mL
== END 2024-07-27 09:11 | disposition home or self-care (01) ==
LOC: HO.LAB 09:10
PROVIDERS: PCP Physician Assistant; Referring Provider Physician Assistant; Visit Provider Internal Medicine Nephrology
DX: D64.9 Anemia, unspecified (principal); R94.4 Abnormal results of kidney function studies; R79.89 Other specified abnormal findings of blood chemistry
CPT/HCPCS: 36415; 80048; 80051; 80076; 82565; 82575; 82607; 82728; 82746; 83540; 84520; 85025

== ENCOUNTER → 2024-08-06 14:09 | Outpatient (BNV) | payer OTHER, SELFPAY | PROVIDERS: PCP Physician Assistant; Referring Provider Physician Assistant; Visit Provider Internal Medicine Medical Oncology | DX: D64.9 Anemia, unspecified (principal) | CPT/HCPCS: 99204 ==

== ENCOUNTER 2024-08-15 10:07 | Outpatient (AMB) | payer OTHER, SELFPAY ==
--- NOTE | 2024-08-15 10:25 | HO.NEPHOV ---
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 She is 54 years of age who has been in good health. She had high BMI and had hypertension at that time. She was taking hydrochlorothiazide and monitors her blood pressure closely at home. She is not a diabetic and does not have any retinopathy, proteinuria or neuropathy. She has been on Zepbound and has lost significant amount of weight. Her blood pressure started dropping with weight loss and her hydrochlorothiazide recently has been discontinued. She denies any carotid artery disease, CVA, ANDRES, PAD, CAD or CHF. She does not take any excessive nonsteroidal anti-inflammatories. She has no history of dry eyes and dry mouth or generalized joint pains. She does not get recurrent urinary infections. She has not taken any antibiotics recently. She tries to maintain good hydration. She has no hearing issues, sinusitis, epistaxis, photosensitivity, urinary symptoms, history of renal calculus, flank pain, new bone pain. She has no history of hypercalcemia. She is clinically well and was without any specific complaints. Her creatinine clearance was found to be 80 mls/minute [facility] Medical History (Updated 08/06/24 @ 14:58 by Kostas Manuel MD) Obesity due to excess calories with serious comorbidity Dyslipidemia Anemia Vitamin D deficiency Tubular adenoma of colon Obesity with serious comorbidity Microcalcifications of the breast Hyperthyroidism HTN (hypertension) Surgical History History of colonoscopy Family History Mother Breast cancer Father Hypertension Sister Hypertension Social History Household Members: Spouse and Children Housing: House Patient Tobacco Use Status: Never used Tobacco e-Cigarette/Vaping Use: Never Used Second Hand Smoke Exposure: No service: No Current occupational status: employed 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 [employer] Current occupational exposures/hazards: No Cognitive needs: No Hearing needs: No Vision needs: No Review of Systems Const All systems reviewed & are unremarkable except as noted in HPI and below Physical Exam Vital Signs: Last Vital Signs BP 130/80 08/15/24 10:26 BMI result Body Mass Index 28.7 Const General: comfortable and no acute distress Orientation/consciousness: patient oriented x3 HEENT Head: Yes normocephalic Mouth: Normal oral and palatal mucosa present Eyes EOM: EOMs intact bilaterally Neck Neck: Yes supple Resp Auscultation: clear to auscultation bilaterally Cardio Jugular venous distension: no JVD Rate: regular rate GI Palpation (GI): Soft to palpation Auscultation: normal bowel sounds General: Yes no CVA tenderness Back/Spine/Pelvis Back: no CVA tenderness Skin General skin exam: no rashes or lesions noted Neuro General: patient oriented x3 and moves all extremities Extrem General: Yes no pedal edema Results Reviewed Nephrology Results: Hgb 10.4 g/dl (12.0-16.0) L 08/06/24 WBC 5.6 X10*3/uL (4.8-10.8) 08/06/24 Plt Count 247 X10*3/uL (160-400) 08/06/24 Sodium 142 mmol/L (135-145) 08/06/24 Potassium 4.3 mmol/L (3.3-5.1) 08/06/24 Chloride 108 mmol/L (96-108) 08/06/24 Carbon Dioxide 24 mmol/L (22-29) 08/06/24 BUN 18 mg/dL (9-16) H 08/06/24 Creatinine 1.03 mg/dL (0.5-1.4) 08/06/24 Calcium 9.9 mg/dL (8.4-10.2) 08/06/24 PTH Intact 70.3 pg/mL (8.7-77.1) 06/12/24 Urine Creatinine 230.30 mg/dL 06/12/24 Assessment & Plan Assessment & Plan (1) High serum creatine: Code(s): R79.89 - Other specified abnormal findings of blood chemistry Category: Medical Plan Vicky likely had mild GLADYS due to tubular injury sometime ago. Her thiazide has been discontinued. She is not known to have any proteinuria even when her BMI has been high. She has been on Zepbound which can cause GLADYS due to volume depletion and resultant tubular injury. She does not take any excessive nonsteroidal inflammatories. She denies any proteinuria, microscopic hematuria or pedal edema. She denied retinopathy. She has good urine output and there is no reason to suspect any obstructive uropathy. She has no history of renal calculus. She had a renal ultrasound, results of which were pending at the time of this office visit. I asked her to cut down sodium in the diet and maintain good hydration. Repeat renal functions had been stable. Her creatinine clearance is close to 80 mls/minute. I did not make any medication changes today. She should continue to hold her Zepbound for now. Follow-up appointment given. Orders: Orders Protein Creatinine Ratio, Ur 6 Months - Other specified abnormal findings of blood chemistry UA and rflx microscopic 6 Months - Other specified abnormal findings of blood chemistry Creatinine 6 Months - Other specified abnormal findings of blood chemistry Electrolytes 6 Months - Other specified abnormal findings of blood chemistry Blood Urea Nitrogen 6 Months - Other specified abnormal findings of blood chemistry Calcium 6 Months - Other specified abnormal findings of blood chemistry Coding Level of Care Code Est Pt Level 4 (45966) Diagnoses High serum creatine
[2024-08-15 10:26] VITALS: BP 130/80; BMI 28.7
== END 2024-08-15 10:50 | disposition home or self-care (01) ==
PROVIDERS: PCP Physician Assistant; Visit Provider Internal Medicine Nephrology
DX: R79.89 Other specified abnormal findings of blood chemistry (principal)
CPT/HCPCS: 99214

== ENCOUNTER → 2024-08-15 10:07 | Outpatient (BNVA) | payer OTHER, SELFPAY | PROVIDERS: PCP Physician Assistant; Visit Provider Internal Medicine Nephrology ==

== ENCOUNTER 2024-09-04 10:12 | Outpatient (AMB) | payer OTHER, SELFPAY ==
--- NOTE | 2024-09-04 10:22 | A.OFFPC_ITS ---
Vital Signs 09/04/24 10:24 Height 5 ft 3 in Weight 161 lb BMI 28.5 BP 126/82 Blood Pressure Location Lt brachial Position Sitting Pulse 60 Pulse Source Pulse Oximeter Pulse Oximetry (%) 99 Oxygen Delivery Method Room Air Intake Visit Reasons: f/u htn Intake Note: Follow up. Needs referral for weight management. Neuro Urologist Required: No Allergies No Known Allergies Allergy (Verified 09/04/24 10:23) Medication List - Last Reconciled 09/04/24 by Ronda Perera PA-C tirzepatide (weight loss) (Zepbound) 5 mg subcut DIRECTED Tobacco use date assessed: 02/29/24 Dental Screening Dental Screen Date: 02/29/24 HPI f/u htn HPI Details History of Present Illness The patient is a 54-year-old female presenting Today for a blood pressure follow up. CV: At our last visit we discontinued the hydrochlorothiazide given her significant weight reduction onset lb and lower blood pressure readings. Today the blood pressure reading is WNL. She states at home it has been less than 120/80. General: She has been well-controlled on zepbound for her weight loss. She is following with weight management at [facility]. Requests a referral today because it is almost a year. She is maintaining weight with lifestyle adjustments. Heme: In addition, the patient has a history of normocytic anemia, previously related to possible underlying kidney disease. She reports not receiving supplemental iron unless advised, but takes multivitamins daily. Social History - Family status: Has children, including recent pregnancies within the family. - Reports regular intake of multivitamin s after weight loss consultation. - Lifestyle: Engages in detailed efforts for maintaining weight and hydration, consuming regular water intake. - Reports functional children milestones and activities with her grandchildren. Review of Systems Physical Exam General: Cooperative, healthy appearing, comfortable, no acute distress and well developed Orientation: Patient oriented x3 Limitations: No limitations Head: Normal to inspection Ears: Hearing grossly normal bilaterally Nose: Normal external nose present Face and sinus: Normal facial exam Eyes: Appearance normal, both eyes and all related structures Neck: Normal visual inspection and Yes full ROM Respiratory: Normal respiratory effort and able to speak in complete sentences. Clear to auscultation bilaterally Cardiovascular: Regular rate and rhythm. Normal S1 and S2 GI: Normal to inspection. Soft to palpation and nontender. No blood in stool or urine Skin: No rashes or lesions noted Neuro: Patient oriented x3 Extremities: Normal to inspection Results - Labs: Normocytic anemia noted, kidney function stable on recent tests. - Tests: Recent mammogram without suspic ious findings. - Diagnostics: Scheduled MRI for suspect ed hemangioma in liver, bone density to be arranged. Plan - Essential Hypertension: Continue regul ar monitoring at home; no medication adjustments needed currently. - Normocytic Anemia: Monitoring continue s with chart changer, no current intervention required. - Chronic Kidney Disease: Continue follo w-up with supervisor vegetable farming in six months as planned. - Abnormal Liver Lesion: Proceed with MR I to confirm diagnosis and evaluate further. - Menopausal Status: Initiate bone densi ty testing due to post-menopausal status. Patient was informed and verbally consented to the use of an ambient scribe for clinic note documentation during this visit. Discussion Notes Concerning her normocytic anemia, there is no indication of iron deficiency requiring supplementation. The incidental liver lesion likely represents a benign hemangioma, which we intend to confirm with an MRI. We also discussed plans to schedule a bone density test, given her menopausal status. For ongoing health, I reiterated avoiding non-steroidal anti-inflammatory drugs and promot ing hydration to support renal health. Future lab work will follow our annual exam to minimize excessive testing. Mammo: this morning 09/04/24 at [facility] Trainer: Oct 2022- UTD Bone Density: Due Colonoscopy: 2020- due in 2026 [facility] Medical History (Updated 08/15/24 @ 13:56 by Ronda Perera PA-C) Obesity due to excess calories with serious comorbidity Dyslipidemia Anemia Vitamin D deficiency Tubular adenoma of colon Obesity with serious comorbidity Microcalcifications of the breast Hyperthyroidism HTN (hypertension) Surgical History History of colonoscopy Family History Mother Breast cancer Father Hypertension Sister Hypertension Social History Household Members: Spouse and Children Housing: House Patient Tobacco Use Status: Never used Tobacco e-Cigarette/Vaping Use: Never Used Second Hand Smoke Exposure: No service: No Current occupational status: employed 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 [employer] Current occupational exposures/hazards: No Cognitive needs: No Hearing needs: No Vision needs: No Questionnaire Thrive Questionnaire Date Thrive assessed: 06/12/24 I am a: Patient What is your living situation today?: I have a steady place to live Within the past 12 months, did the food you bought not last and you didn't have the money to get more?: Never true Within the past 12 months, did you worry whether your food would run out before you got money to buy more?: Never true Do you have trouble paying for medicines?: Yes Do you have trouble getting transportation to medical appointments?: No Do you have trouble paying your heating and electricity bill?: No Do you have trouble taking care of your child, family member or friend?: No Do you have trouble with day-to-day activities such as bathing, preparing meals, shopping, managing finances, etc.?: No Are you currently unemployed and looking for a job?: No Are you interested in more education?: No Please select the resources that you would like help with: None Currently or been in a relationship where the following occur: No concerns reported THRIVE Score: 0 EVER-7 AMB Questionnaire EVER-7 Date EVER - 7 assessed: 02/29/24 Source: Developed by Drs. Alber Jimenez, Mariella Barrientos, Speedy Calvin and colleagues, with an educational manuel from [employer]. Physical exam (Primary Care) Vital Signs: Last Vital Signs Pulse 60 09/04/24 10:24 BP 126/82 09/04/24 10:24 Pulse Ox 99 09/04/24 10:24 Oxygen Delivery Method Room Air 09/04/24 10:24 BMI result Body Mass Index 28.5 Tobacco/Smoking Status: Tobacco use Status Tobacco use date assessed 02/29/24 09/04/24 10:23 Patient Tobacco Use Status Never used Tobacco 09/04/24 10:23 e-Cigarette/Vaping Use Never Used 09/04/24 10:23 Thrive Assessment: Date of Thrive Assessment Date Thrive assessed 06/12/24 09/04/24 10:23 Currently or been in a relationship where the following occur: No concerns reported Results Reviewed Results Reviewed: Laboratory Tests 08/06/24 14:42 WBC 5.6 RBC 3.51 L RBC (Send Out) 3.58 L Hgb 10.4 L Hct 31.5 L Hct (Send Out) 32.7 L Plt Count 247 D Sodium 142 Potassium 4.3 Chloride 108 Carbon Dioxide 24 Anion Gap 14 BUN 18 H Creatinine 1.03 Estim Creat Clear Calc 58.6 Coding Level of Care Code Est Pt Level 4 (69598) Complex EM visit Add On G2211 Diagnoses Normochromic normocytic anemia D64.9 Decreased GFR R94.4 Obesity due to excess calories with serious comorbidity E66.09 Primary hypertension I10 Hypertension type: primary hypertension Assessment & Plan Assessment & Plan (1) Normochromic normocytic anemia: Code(s): D64.9 - Anemia, unspecified Category: Medical (2) Decreased GFR: Code(s): R94.4 - Abnormal results of kidney function studies Category: Medical (3) Obesity due to excess calories with serious comorbidity: Code(s): E66.09 - Other obesity due to excess calories Category: Medical (4) HTN (hypertension): Code(s): I10 - Essential (primary) hypertension Category: Medical Qualifiers: Hypertension type: primary hypertension Qualified Code(s): I10 - Essential (primary) hypertension Plan . Orders: Orders XR DEXA axial skeleton Today N95.1 - Menopausal and female climacteric states, Z13.820 - Encounter for screening for osteoporosis Referrals Medical Weight Management Referral E66.09 - Other obesity due to excess calories
[2024-09-04 10:24] VITALS: BP 126/82; PULSE 60; O2SAT 99; BMI 28.5
== END 2024-09-04 11:00 | disposition home or self-care (01) ==
PROVIDERS: PCP Physician Assistant; Visit Provider Physician Assistant
DX: D64.9 Anemia, unspecified (principal); R94.4 Abnormal results of kidney function studies; E66.09 Other obesity due to excess calories; Z68.28 Body mass index [BMI] 28.0-28.9, adult; I10 Essential (primary) hypertension

== ENCOUNTER → 2024-09-04 10:12 | Outpatient (BNVA) | payer OTHER, SELFPAY | PROVIDERS: PCP Physician Assistant; Visit Provider Physician Assistant ==

== ENCOUNTER 2024-10-16 07:49 | Outpatient (REF) | payer OTHER, SELFPAY ==
--- NOTE | ~2024-10-16 | MM_ITS ---
EXAMINATION: Dual-Energy X-ray Absorptiometry - Bone Density Study HISTORY: Estrogen deficiency TECHNIQUE: [employer] Dual energy absorptiometry (DEXA) of the lumbar spine, total left hip, and femoral neck was performed. COMPARISON: There are no prior studies for comparison. FINDINGS: The bone mineral density of the lumbar spine is 1.122 with a T-score of -0.4, and a Z-score of -0.5. The bone mineral density of the left total hip is 0.946 with a T-score of -0.5, and a Z-score of -1.0. The bone mineral density of the left femoral neck is 0.857 with a T-score of -1.3, and a Z-score of -1.3. FRACTURE RISK: The FRAX index suggests a risk of major osteoporotic fracture of 2.8%, and of hip fracture 0.2%. MM/XR DEXA axial skeleton IMPRESSION: Based on bone mineral density, and according to World Health Organization (WHO) criteria, the diagnosis is consistent with osteopenia. All bone density values are in grams per centimeter squared. At this facility, the least significant change in BMD with 95% confidence is 0.022 at the lumbar spine, 0.027 at the hip, and 0.023 at the distal 1/3 radius. Electronically signed by: Alber Jones MD 10/16/2024 12:45 PM [facility] [place]
== END 2024-10-16 07:50 | disposition home or self-care (01) ==
LOC: HO.MAMMO 07:49
PROVIDERS: PCP Physician Assistant; Visit Provider Physician Assistant
DX: Z13.820 Encounter for screening for osteoporosis (principal); Z78.0 Asymptomatic menopausal state
CPT/HCPCS: 77080

== ENCOUNTER → 2024-10-16 08:15 | Outpatient (BNV) | payer OTHER, SELFPAY | PROVIDERS: PCP Physician Assistant; Visit Provider Radiology Diagnostic Radiology | DX: E28.39 Other primary ovarian failure (principal) | CPT/HCPCS: 77085 ==

== ENCOUNTER 2024-11-01 15:55 | Outpatient (REF) | payer OTHER, SELFPAY ==
--- NOTE | ~2024-11-01 | MR_ITS ---
EXAMINATION: MRI Abdomen without and with contrast HISTORY: R16.0 - Hepatomegaly, not elsewhere classified COMPARISON: Correlation is made with an abdominal ultrasound dated 07/02/2024. TECHNIQUE: Axial in and out of phase T1-weighted gradient echo, axial diffusion weighted, and axial and coronal haste T2 with fat saturation images were obtained through the abdomen. Intravenous contrast could not be administered due to lack of IV access. FINDINGS: There is no significant signal loss within the liver on opposed phase imaging to suggest steatosis. The liver is normal in size. There are scattered T2 hyperintense foci, predominantly in the inferior right lobe, measuring up to 8 mm in size. These likely represent cysts or hemangiomas, although evaluation is limited by lack of intravenous contrast. None of the lesions is as large as the echogenic focus noted on ultrasound (1.5 cm). There is no intra or extrahepatic biliary ductal dilatation. The gallbladder, spleen, pancreas, adrenals, and kidneys are unremarkable without intravenous contrast. No retroperitoneal lymphadenopathy or ascites is identified in the upper abdomen. MR/MR abdomen wo con IMPRESSION: Multiple subcentimeter probable cysts or hemangiomas are noted in the liver. Evaluation is limited by lack of intravenous contrast administration. The lesion noted on ultrasound is not definitely identified. Intravenous access cannot be established, postcontrast images could be obtained. Otherwise, follow-up with ultrasound is recommended. Electronically signed by: Alber Jones MD 11/04/2024 07:17 AM [facility]
--- OUTSIDE RECORDS SUMMARY | 2024-11-01 15:58 | XMS_ITS | Clinical Summary ---
Author Organization [facility] Address [address] [place] [address] Care Team Providers Care Transportation Engineering Technician Name Role Phone Pcp, No Primary Care Provider Unavailabl e Allergies No known active allergies Medications No known medications Social History Tobacco Use Types Packs/Day Years Used Date Smoking Tobacco: Never Smokeless Tobacco: Never Alcohol Use Standard Drinks/Week Comments Not Currently 0 (1 standard drink = 0.6 oz pur e alcohol) Sex and Gender Information Value Date Recorded Sex Assigned at Not on file Gender Identity Not on file Sexual Orientation Not on file Last Filed Vital Signs Vital Sign Reading Time Taken Comments Blood Pressure 179/87 05/15/2021 4:21 PM EDT Pulse 66 05/15/2021 4:21 PM EDT Temperature 36.9 ??C (98.5 ??F) 05/15/2021 4:21 PM ED T Respiratory Rate - - Oxygen Saturation 96% 05/15/2021 4:21 PM EDT Inhaled Oxygen Concentration - - Weight - - Height - - Body Mass Index - - Plan of Treatment Health Maintenance Due Date Last Done Comments Hepatitis C Virus Screening 1969 HIV Screening 1982 DTaP/Tdap/Td Vaccines (1 - Tdap) 1988 Hepatitis B Vaccines (1 of 3 - 19+ 3-dose series) 1988 Pap Smear (Ages 21-65) 1990 Mammogram 2009 Colonoscopy 2014 Pneumococcal Vaccines 50+ (1 of 1 - PCV) 2019 Zoster (Shingles) Vaccine (1 of 2) 2019 Influenza Vaccine 05/02/2024 COVID-19 Vaccine ( - 2023-2 5 season) 2024 Pneumococcal Vaccine: Pediat olvin (0-5 Years) and At-Risk Patients (6 to 49 Years) Aged Out No longer eligible b ased on patient's age to complete this topic Care Teams Transportation Engineering Technician Relationship Specialty Start Date End Date Pcp, No PCP - General General Medicine 05/15/21
--- OUTSIDE RECORDS SUMMARY | 2024-11-01 15:58 | XMS_ITS | Clinical Summary ---
Author Organization [facility] Address [address] [place] [address] Care Team Providers Care Drafting Layout Worker Name Role Phone Unavailable Primary Care Provider Unavailabl e Source Comments PLEASE NOTE, if this patient is a minor, it may be UNLAWFUL to discuss sensitive information that is contained in these records (such as FAMILY PLANNING, MENTAL HEALTH or SUBSTANCE ABUSE) with the minor patient's parent or other person without the patient's specific authorization.[facility] Social History Tobacco Use Types Packs/Day Years Used Date Smoking Tobacco: Never Assessed Social Connections Answer Date Recorded Connectedness 0 06/13/2024 Financial Resource Strain Answer Date R ecorded Financial Resource Strain 0 2020 Stress Answer Date Recorded Stress 0 05/08/2021 Physical Activity Answer Date Recorded Physical Activity 0 05/08/2021 Food Insecurity Answer Date Recorded Food 0 06/27/2024 Transportation Needs Answer Date Record ed Transportation 0 05/08/2021 Housing Stability Answer Date Recorded Housing 0 05/08/2021 Safety and Environment Answer Date Alphonso rded Safety 0 05/08/2021 Utilities Answer Date Recorded Utilities 0 05/08/2021 Employment Answer Date Recorded Stress 0 06/13/2024 Comments Unknown Sex and Gender Information Value Date Recorded Sex Assigned at Not on file Legal Sex Female 1:35 PM PDT Gender Identity Not on file Sexual Orientation Not on file Plan of Treatment Not on file
--- OUTSIDE RECORDS SUMMARY | 2024-11-01 15:58 | XMS_ITS | Clinical Summary ---
Author Organization [facility] Address [address] [place] [id number] Care Team Providers Care Embedded Processor Name Role Phone Gemma Peraza MD Primary Care Provider [phone] Social History Tobacco Use Types Packs/Day Years Used Date Smoking Tobacco: Never Assessed Sex and Gender Information Value Date Recorded Sex Assigned at Not on file Gender Identity Not on file Sexual Orientation Not on file Plan of Treatment Health Maintenance Due Date Last Done Comments Breast Cancer Screening 1969 DTaP,Tdap,and Td Vaccines (1 - Tdap) 1988 Hepatitis B Vaccines (1 of 3 - 19+ 3-dose series) 1988 Cervical Cancer Screening: P ap Smear 1990 Zoster Vaccines (1 of 2) 2019 Colorectal Cancer Screening: Colonoscopy 09/04/2022 Depression Screening 09/04/2022 HIV Screening 09/04/2022 Hepatitis C Screening 09/04/2022 Social Influencers of Health Screening 09/04/2022 COVID-19 Vaccine ( - 2023-2 5 season) 2024 Influenza Vaccine (#1) 2024 HIB Vaccines Aged Out No longer eligi ble based on patient's age to complete this topic HPV Vaccines Aged Out No longer eligi ble based on patient's age to complete this topic Hepatitis A Vaccines Aged Out No long er eligible based on patient's age to complete this topic IPV Vaccines Aged Out No longer eligi ble based on patient's age to complete this topic MMR Vaccines Aged Out No longer eligi ble based on patient's age to complete this topic Meningococcal ACWY Vaccine Aged Out N o longer eligible based on patient's age to complete this topic Pneumococcal Vaccine: Pediat rics (0 to 5 Years) and At-Risk Patients (6 to 64 Years) Aged Out No longer eligible b ased on patient's age to complete this topic RSV Immunization Patients Un linden 20 months Aged Out No longer eligible b ased on patient's age to complete this topic Varicella Vaccines Aged Out No longer eligible based on patient's age to complete this topic Care Teams Embedded Processor Relationship Specialty Start Date End Date Gemma Peraza MD PCP - General Internal Medicine 12/15/21
== END 2024-11-01 15:56 | disposition home or self-care (01) ==
LOC: HO.MRI 15:55
PROVIDERS: PCP Physician Assistant; Visit Provider Physician Assistant
DX: R10.84 Generalized abdominal pain (principal); R16.0 Hepatomegaly, not elsewhere classified
CPT/HCPCS: 74181

== ENCOUNTER → 2024-11-01 16:06 | Outpatient (BNV) | payer OTHER, SELFPAY | PROVIDERS: PCP Physician Assistant; Visit Provider Radiology Diagnostic Radiology | DX: R16.0 Hepatomegaly, not elsewhere classified (principal) | CPT/HCPCS: 74181 ==

== ENCOUNTER 2025-02-11 07:20 | Outpatient (REF) | payer OTHER, SELFPAY ==
--- OUTSIDE RECORDS SUMMARY | 2025-02-11 07:22 | XMS_ITS | Clinical Summary ---
Author Organization [facility] Address [address] [place] [address] Care Team Providers Care Ore Digger Name Role Phone Unavailable Primary Care Provider [...]
--- OUTSIDE RECORDS SUMMARY | 2025-02-11 07:22 | XMS_ITS | Patient Health Record ---
Author Organization [facility] Address [address] [place] [address] Care Team Providers Care Machine Setter Supervisor Name Role Phone Ronda Perera Primary Care Provider Shamir Bello Unavailable [phone] Allergies No Known Allergies Reason For Referral No Information Medications Medication SIG (Take, Route, Frequency, Duration) Notes Start Date End Date Status IUD's Active Social History Tobacco Use: Social History Observation Description Date Details (start date - stop date) Never Smoker NA - NA Tobacco Use/Smoking Question Answer Notes Are you a: nonsmoker Alcohol Screen Question Answer Notes Did you have a drink containing alcohol in the p ast year? No Points 0 Interpretation Negative Tobacco use other than smoking: Question Answer Notes Are you an other tobacco user? No Plan Of Treatment No Information Insurance Providers Payer Name Payer Address Payer Phone Subscriber Number Group Number Insured Name Patient Relationship to Insured Coverage Start Date Coverage End Date [facility] [id number] [address] [address] [place] [address] [id number] Queta Sanchez Self - patient is the insured Medical (General) History Medical History History ICD Code thyroid Chicken pox Joint implants/screws Surgical History Surgery Date(Month/Year)
--- OUTSIDE RECORDS SUMMARY | 2025-02-11 07:22 | XMS_ITS | Clinical Summary ---
Author Organization [facility] Address [address] [place] [address] Phone Care Team Providers Care Pipe Fitter Helper Name Role Phone Ronda Perera Primary Care Provider Social History Tobacco Use Types Packs/Day Years Used Date Smoking Tobacco: Never Assessed Comments Unknown Sex and Gender Information Value Date Recorded Sex Assigned at Not on file Legal Sex Female 5:56 AM EST Gender Identity Not on file Sexual Orientation Not on file Plan of Treatment Health Maintenance Due Date Last Done Comments Breast Cancer Screening 1969 DTaP,Tdap,and Td Vaccines (1 - Tdap) 1988 Hepatitis B Vaccines (1 of 3 - 19+ 3-dose series) 1988 Cervical Cancer Screening: P ap Smear 1990 Pneumococcal Vaccine: 50+ Ye ars (1 of 1 - PCV) 2019 Zoster Vaccines (1 of 2) 2019 Cholesterol Screening (Lipid Panel) 09/04/2022 Colorectal Cancer Screening: Colonoscopy 09/04/2022 Depression Screening 09/04/2022 HIV Screening 09/04/2022 Hepatitis C Screening 09/04/2022 Social Influencers of Health Screening 09/04/2022 COVID-19 Vaccine (2023-2 5 season) 2024 Influenza Vaccine (Season Ended) 2025 HIB Vaccines Aged Out No longer eligi [...] patient's age to complete this topic Meningococcal B Vaccine Aged Out No l onger eligible based on patient's age to complete [...] on patient's age to complete this topic Insurance [facility] Care Teams Pipe Fitter Helper Relationship Specialty Start Date End Date Ronda Perera PA [address] [place] [id number] PCP - General Physician Grant Administrator 11/08/24
--- OUTSIDE RECORDS SUMMARY | 2025-02-11 07:22 | XMS_ITS | Clinical Summary ---
Author Organization [facility] Address [address] [place] [address] Care Team Providers Care Flight Control Tower Operator Name Role Phone Pcp, No Primary Care Provider Unavailabl e Allergies No known active allergies Medications No known medications Social History Tobacco Use Types Packs/Day Years Used Date Smoking Tobacco: Never Smokeless Tobacco: Never Alcohol Use Standard Drinks/Week Comments Not Currently 0 (1 standard drink = 0.6 oz pur e alcohol) Comments Unknown Sex and Gender Information Value Date Recorded Sex Assigned at Not on file Legal Sex Female 3:58 PM EDT Gender Identity Not on file Sexual Orientation [...] (1 of 3 - 19+ 3-dose series) 03/04 Pap Smear (Ages 21-65) 1990 Mammogram 2009 Colonoscopy 2014 Pneumococcal Vaccines 50+ (1 of 1 - PCV) 2019 Zoster (Shingles) Vaccine (1 of 2) 2019 COVID-19 Vaccine (1 - 2023- season) 2024 Influenza Vaccine 05/02/2025 Insurance [facility] - HMO Care Teams Flight Control Tower Operator Relationship Specialty Start Date End Date Pcp, No PCP - General General Medicine 05/15/21
[2025-02-11 08:08] LABS: Anion Gap 14 (12-20); Blood Urea Nitrogen 19 mg/dL (9-16); Calcium 9.6 mg/dL (8.4-10.2); Carbon Dioxide 24 mmol/L (22-29); Chloride 108 mmol/L (96-108); Estimated Glomerular Filt Rate 58; Potassium 4.4 mmol/L (3.3-5.1); Sodium 142 mmol/L (135-145)
[2025-02-11 08:09] LABS: Appearance Urine Clear; Color Urine Yellow; Glucose Urine UA Negative (Negative); Leukocyte Esterase Urine Trace (Negative); Nitrite Urine Negative (Negative); Specific Gravity - Urine >= 1.030 (1.005-1.025); UMIC TRIGGER UA YES; Urine Blood Negative (Negative); Urine Ketones Negative (Negative); Urine Protein Negative (Neg-Trace)
[2025-02-11 08:14] LABS: Bacteria Urine Trace (None Seen); Hyaline Casts Urine 0-2 /LPF (0-2); RBC Urine 0-2 /HPF (0-2); Squamous Epithelial Cell Urine 0-2 /HPF (0-2); WBC Urine 0-5 /HPF (0-5)
[2025-02-11 10:37] LABS: Creatinine Urine 240.36 mg/dL; Protein/Creatinine Ratio, Ur 0.04 (<0.2); Total Protein Urine Random 9 mg/dL (<12)
== END 2025-02-11 07:21 | disposition home or self-care (01) ==
LOC: HO.LAB 07:20
PROVIDERS: PCP Physician Assistant; Visit Provider Internal Medicine Nephrology
DX: R79.89 Other specified abnormal findings of blood chemistry (principal)
CPT/HCPCS: 36415; 80051; 81001; 81003; 82310; 82565; 82570; 84156; 84520

== ENCOUNTER 2025-02-13 10:07 | Outpatient (AMB) | payer OTHER, SELFPAY ==
--- NOTE | 2025-02-13 10:19 | HO.NEPHOV ---
Vital Signs 02/13/25 10:20 Height 5 ft 3 in Weight 166 lb 2 oz BMI 29.4 BP 120/78 Blood Pressure Location Lt brachial Position Sitting Intake Visit Reasons: 6mon follow up w/labs-Conf Pharmacy Buyer Required: No Accompanied by: Self / Same As Patient Allergies No Known Allergies Allergy (Verified 02/13/25 10:20) HPI Comments Details: Vicky was seen in follow up for fluctuant serum creatinine. She is 54 years of age who has been in good health. She had high BMI and had hypertension at that time. She was taking hydrochlorothiazide and monitors her blood pressure closely at home. She is not a diabetic and does not have any retinopathy, proteinuria or neuropathy. She has been on Zepbound and has lost significant amount of weight. Her blood pressure started dropping with weight loss and her hydrochlorothiazide recently has been discontinued. She denies any carotid artery disease, CVA, ANDRES, PAD, CAD or CHF. She does not take any excessive nonsteroidal anti-inflammatories. She has no history of dry eyes and dry mouth or generalized joint pains. She does not get recurrent urinary infections. She has not taken any antibiotics recently. She tries to maintain good hydration. She has no hearing issues, sinusitis, epistaxis, photosensitivity, urinary symptoms, history of renal calculus, flank pain, new bone pain. She has no history of hypercalcemia. She is clinically well and was without any specific complaints. Her last creatinine clearance was found to be 80 mls/minute [facility] Medical History Obesity due to excess calories with serious comorbidity Dyslipidemia Anemia Vitamin D deficiency Tubular adenoma of colon Obesity with serious comorbidity Microcalcifications of the breast Hyperthyroidism HTN (hypertension) Surgical History History of colonoscopy Family History Mother Breast cancer Father Hypertension Sister Hypertension Social History Household Members: Spouse and Children Housing: House Patient Tobacco Use Status: Never used Tobacco e-Cigarette/Vaping Use: Never Used Second Hand Smoke Exposure: No service: No Current occupational status: employed 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 [employer] Current occupational exposures/hazards: No Cognitive needs: No Hearing needs: No Vision needs: No Review of Systems Const All systems reviewed & are unremarkable except as noted in HPI and below Physical Exam Vital Signs: Last Vital Signs BP 120/78 02/13/25 10:20 BMI result Body Mass Index 29.4 Const General: comfortable and no acute distress Orientation/consciousness: patient oriented x3 HEENT Head: Yes normocephalic Mouth: Normal oral and palatal mucosa present Eyes EOM: EOMs intact bilaterally Neck Neck: Yes supple Resp Auscultation: clear to auscultation bilaterally Cardio Jugular venous distension: no JVD Rate: regular rate GI Palpation (GI): Soft to palpation Auscultation: normal bowel sounds General: Yes no CVA tenderness Back/Spine/Pelvis Back: no CVA tenderness Skin General skin exam: no rashes or lesions noted Neuro General: patient oriented x3 and moves all extremities Extrem General: Yes no pedal edema Results Reviewed Nephrology Results: Hgb 13.5 g/dl (12.0-16.0) 02/03/25 WBC 4.6 X10*3/uL (4.8-10.8) L 02/03/25 Plt Count 198 X10*3/uL (160-400) 02/03/25 Sodium 142 mmol/L (135-145) 02/11/25 Potassium 4.4 mmol/L (3.3-5.1) 02/11/25 Chloride 108 mmol/L (96-108) 02/11/25 Carbon Dioxide 24 mmol/L (22-29) 02/11/25 BUN 19 mg/dL (9-16) H 02/11/25 Creatinine 1.00 mg/dL (0.5-1.4) 02/11/25 Calcium 9.6 mg/dL (8.4-10.2) 02/11/25 Urine Protein Negative mg/dL (Neg-Trace) 02/11/25 Urine Creatinine 240.36 mg/dL 02/11/25 Protein/Creatinin Ratio 0.04 (<0.2) 02/11/25 Assessment & Plan Assessment & Plan (1) High serum creatine: Code(s): R79.89 - Other specified abnormal findings of blood chemistry Category: Medical Plan Vicky likely had mild GLADYS due to tubular injury sometime ago. Her thiazide has been discontinued. She is not known to have any proteinuria even when her BMI has been high. She has been on Zepbound which can cause GLADYS due to volume depletion and resultant tubular injury. She does not take any excessive nonsteroidal inflammatories. She denies any proteinuria, microscopic hematuria or pedal edema. She denied retinopathy. She has good urine output and there is no reason to suspect any obstructive uropathy. She has no history of renal calculus. I asked her to cut down sodium in the diet and maintain good hydration. Repeat renal functions had been stable. Her creatinine clearance is close to 80 mls/minute. I shall repeat it in a year time. I did not make any medication changes today. Follow-up appointment given in a year time. Orders: Orders Creatinine Clearance Urine 24U 1 Year - Other specified abnormal findings of blood chemistry Creatinine 1 Year - Other specified abnormal findings of blood chemistry Electrolytes 1 Year - Other specified abnormal findings of blood chemistry Blood Urea Nitrogen 1 Year - Other specified abnormal findings of blood chemistry Coding Level of Care Code Est Pt Level 4 (36493) Diagnoses High serum creatine
[2025-02-13 10:20] VITALS: BP 120/78; BMI 29.4
--- OUTSIDE RECORDS SUMMARY | 2025-02-13 11:05 | XMS_ITS | Clinical Summary ---
Author Organization [facility] Address [address] [place] [id number] Care Team Providers Care Er Nurse Name Role Phone Pcp, No Primary Care [...] 2023- season) 2024 Influenza Vaccine 05/02/2025 Insurance [facility] - H[facility] Care Teams Er Nurse Relationship Specialty Start Date End Date Pcp, No PCP - General General Medicine 05/15/21
--- OUTSIDE RECORDS SUMMARY | 2025-02-13 11:05 | XMS_ITS | Clinical Summary ---
Author Organization [facility] Address [address] [place] [address] Phone Care Team Providers Care Clinical Supervisor Name Role Phone Ronda Perera Primary Care Provider [phone] Social History Tobacco Use Types Packs/Day Years [...] patient's age to complete this topic Insurance [facility] Care Teams Clinical Supervisor Relationship Specialty Start Date End Date Ronda Perera PA [address] [place] [id number] PCP - General Physician Php Architect 11/08/24
--- OUTSIDE RECORDS SUMMARY | 2025-02-13 11:05 | XMS_ITS | Patient Health Record ---
Author Organization [facility] Address [address] [place] [address] Care Team Providers Care Relationship Management Lead Name Role Phone Ronda Perera Primary Care Provider Shamir Bello Unavailable [phone] Allergies No Known Allergies Reason For Referral [...] Insured Coverage Start Date Coverage End Date [facility] [id number] [address] [address] [place] [address] [id number] Queta Sanchez Self - patient is the insured Medical (General) History Medical History History ICD Code thyroid Chicken pox Joint implants/screws Surgical History Surgery Date(Month/Year)
--- OUTSIDE RECORDS SUMMARY | 2025-02-13 11:05 | XMS_ITS | Clinical Summary ---
Author Organization [facility] Address [address] [place] [address] Care Team Providers Care Sap Business Intelligence Consultant Name Role Phone Unavailable Primary Care Provider [...]
== END 2025-02-13 10:32 | disposition home or self-care (01) ==
LOC: HO.HKAS 10:08
PROVIDERS: PCP Physician Assistant; Visit Provider Internal Medicine Nephrology
DX: R79.89 Other specified abnormal findings of blood chemistry (principal)
CPT/HCPCS: 99214

== ENCOUNTER → 2025-02-13 10:07 | Outpatient (BNVA) | payer OTHER, SELFPAY | PROVIDERS: PCP Physician Assistant; Visit Provider Internal Medicine Nephrology ==

== ENCOUNTER 2025-03-06 15:22 | Outpatient (AMB) | payer OTHER, SELFPAY ==
--- NOTE | 2025-03-06 15:55 | A.OFFPC_ITS ---
Vital Signs 03/06/25 15:57 BP 126/80 Blood Pressure Location Rt brachial Position Sitting Respiration 12 Pulse 74 Pulse Source Pulse Oximeter Pulse Oximetry (%) 100 Oxygen Delivery Method Room Air Intake Visit Reasons: annual physical Allergies No Known Allergies Allergy (Verified 02/13/25 10:20) Medication List - Last Reconciled 03/06/25 by Ronda Perera PA-C Tobacco use date assessed: 02/29/24 Dental Screening Dental Screen Date: 02/29/24 HPI annual physical HPI Details The patient is a 54-year-old female presenting for a physical exam CV: No longer on hydrochlorothiazide given her significant weight reduction onset lb and lower blood pressure readings. Today the blood pressure reading is WNL. She states at home it has been less than 120/80. General: She has been off of Zepbound since last year in the summer and has maintained with diet and exercise. Heme: Normocytic anemia has stabilized. Following with Hematology. GI: Had to move her appointment with GI for the liver cysts but rescheduled to April. Colonoscopy: 10/01/2020, due in 2026 Mammogram: utd, follows with [facility] Pap: elsy MONTGOMERY in Nov 2022- due in 5 years, just got IUD out [facility] Medical History Obesity due to excess calories with serious comorbidity Dyslipidemia Anemia Vitamin D deficiency Tubular adenoma of colon Obesity with serious comorbidity Microcalcifications of the breast Hyperthyroidism HTN (hypertension) Surgical History History of colonoscopy Family History Mother Breast cancer Father Hypertension Sister Hypertension Social History Household Members: Spouse and Children Housing: House Patient Tobacco Use Status: Never used Tobacco e-Cigarette/Vaping Use: Never Used Second Hand Smoke Exposure: No service: No Current occupational status: employed 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 1. Little interest or pleasure in doing things: not at all 2. Feeling down, depressed, or hopeless: not at all 3. Trouble falling or staying asleep, or sleeping too much: not at all 4. Feeling tired or having little energy: not at all 5. Poor appetite or overeating: not at all 6. Feeling bad about yourself - or that you are a failure or have let yourself or your family down: not at all 7. Trouble concentrating on things, such as reading the newspaper or watching television: not at all 8. Moving or speaking so slowly that other people could have noticed. Or the opposite - being so fidgety or restless that you have been moving around a lot more than usual: not at all 9. Thoughts that you would be better off or of hurting yourself in some way: not at all Total score: 0 Source: Developed by Drs. Alber Jimenez, Mariella Barrientos, Speedy Calvin and colleagues, with an educational manuel from [employer]. Thrive Questionnaire Date Thrive assessed: 06/12/24 I am a: Patient What is your living situation today?: I have a steady place to live Within the past 12 months, did the food you bought not last and you didn't have the money to get more?: Never true Within the past 12 months, did you worry whether your food would run out before you got money to buy more?: Never true Do you have trouble paying for medicines?: No Do you have trouble getting transportation to medical appointments?: No Do you have trouble paying your heating and electricity bill?: No Do you have trouble taking care of your child, family member or friend?: No Do you have trouble with day-to-day activities such as bathing, preparing meals, shopping, managing finances, etc.?: No Are you currently unemployed and looking for a job?: No Are you interested in more education?: No Please select the resources that you would like help with: None Currently or been in a relationship where the following occur: No concerns reported THRIVE Score: 0 AUDIT C Alcohol Use Questionnaire (AUDIT-C) 1. How often do you have a drink containing alcohol?: Monthly or less 2. How many drinks containing alcohol do you have on a typical day when you are drinking?: 1 or 2 3. How often do you have six or more drinks on one occasion?: Never Total Score: 1 EVER-7 AMB Questionnaire EVER-7 Date EVER - 7 assessed: 02/29/24 Feeling nervous, anxious, or on edge: 0 = Not at all Not being able to stop or control worryin = Not at all Worrying too much about different things: 0 = Not at all Trouble relaxin = Not at all Being so restless that it is hard to sit still: 0 = Not at all Becoming easily annoyed or irritable: 0 = Not at all Feeling afraid as if something awful might happen: 0 = Not at all Total EVER-7 score (0-4 normal; 5-9 mild; 10-14 moderate; 15-21 severe): 0 Source: Developed by Drs. Alber Jimenez, Mariella Barrientos, Speedy Calvin and colleagues, with an educational manuel from [employer]. Physical exam (Primary Care) Vital Signs: Last Vital Signs Pulse 74 03/06/25 15:57 Resp 12 03/06/25 15:57 BP 126/80 03/06/25 15:57 Pulse Ox 100 03/06/25 15:57 Oxygen Delivery Method Room Air 03/06/25 15:57 Tobacco/Smoking Status: Tobacco use Status Tobacco use date assessed 02/29/24 03/06/25 15:56 Patient Tobacco Use Status Never used Tobacco 03/06/25 15:56 e-Cigarette/Vaping Use Never Used 03/06/25 15:56 PHQ-9: PHQ-9 Score PHQ-9: Total score 0 03/06/25 15:56 Thrive Assessment: Date of Thrive Assessment Date Thrive assessed 06/12/24 03/06/25 15:56 Currently or been in a relationship where the following occur: No concerns reported Const Orientation/consciousness: patient oriented x3 HENMT Ears: hearing grossly normal bilaterally and TM's normal bilaterally General nose exam: No nasal polyps present Face and sinus: Yes sinuses nontender Mouth: Normal oral and palatal mucosa present Eyes Pupils: Equal, round and reactive pupils present EOM: EOMs intact bilaterally Neck Neck: Yes full ROM and Yes no lymphadenopathy Thyroid: Thyroid normal Chest Chest palpation & inspection: normal inspection of the chest Resp Auscultation: clear to auscultation bilaterally Cardio Rate: regular rate Rhythm: regular rhythm Heart sounds: S1 normal heart sound present and S2 normal heart sound present Peripheral pulses: Peripheral pulses 2+ throughout GI Other: Soft, nontender Auscultation: normal bowel sounds Rectal Exam - Female: deferred General: Yes no CVA tenderness Back/Spine/Pelvis Other: Nontender Back: no CVA tenderness Skin General skin exam: no rashes or lesions noted Neuro General: patient oriented x3, gait normal, CN's II-XI intact bilaterally and deep tendon reflexes 2+ bilaterally Cranial nerves: Yes Equal, round and reactive pupils present Motor exam (neuro): 5/5 motor strength present throughout Sensory Exam: double simultaneous stimulation for sensation normal Coordination: [id number]-[id number] test normal and Romberg test negative Extrem General: Yes normal to inspection and Yes full ROM Psych Affect: normal affect Attitude: cooperative Thought process: Normal thought process present Thought content: Normal thought content present Insight: Good insight present (Psych) Judgement: Good judgement present (Psych) Coding Level of Care Code Est Pt Prev Care 40-64y(69886) Diagnoses Routine general medical examination at a health care facility Z00.00 Dyslipidemia E78.5 Decreased GFR R94.4 Cystic disease of liver Q44.6 Assessment & Plan Assessment & Plan (1) Routine general medical examination at a health care facility: Code(s): Z00.00 - Encounter for general adult medical examination without abnormal findings Plan: Health maintenance reviewed. Labs ordered (2) Dyslipidemia: Code(s): E78.5 - Hyperlipidemia, unspecified Category: Medical Plan: We will monitor (3) Decreased GFR: Code(s): R94.4 - Abnormal results of kidney function studies Category: Medical Plan: Following with Nephrology (4) Cystic disease of liver: Code(s): Q44.6 - Cystic disease of liver Category: Medical Plan: Ultrasound ordered. Appointment scheduled to see GI next month. Orders: Orders Comprehensive [place]. Panel Fast Today E78.5 - Hyperlipidemia, unspecified, I10 - Essential (primary) hypertension, Q44.6 - Cystic disease of liver, R94.4 - Abnormal results of kidney function studies TSH reflex Free T4 Today E78.5 - Hyperlipidemia, unspecified, I10 - Essential (primary) hypertension, Q44.6 - Cystic disease of liver, R94.4 - Abnormal results of kidney function studies Hemoglobin A1c Today E78.5 - Hyperlipidemia, unspecified, I10 - Essential (primary) hypertension, Q44.6 - Cystic disease of liver, R73.01 - Impaired fasting glucose, R94.4 - Abnormal results of kidney function studies Complete Blood Count Auto Diff Today E78.5 - Hyperlipidemia, unspecified, I10 - Essential (primary) hypertension, Q44.6 - Cystic disease of liver, R94.4 - Abnormal results of kidney function studies Lipid Panel Today E78.5 - Hyperlipidemia, unspecified, I10 - Essential (primary) hypertension, Q44.6 - Cystic disease of liver, R94.4 - Abnormal results of kidney function studies UA CC w/rflx Micro + Cult Today E78.5 - Hyperlipidemia, unspecified, I10 - Essential (primary) hypertension, Q44.6 - Cystic disease of liver, R94.4 - Abnormal results of kidney function studies, Z13.220 - Encounter for screening for lipoid disorders US abdomen comp w elastography Today Q44.6 - Cystic disease of liver
[2025-03-06 15:57] VITALS: BP 126/80; PULSE 74; RESP 12; O2SAT 100
--- OUTSIDE RECORDS SUMMARY | 2025-03-06 17:54 | XMS_ITS | Patient Health Record ---
Author Organization [facility] Address [address] [place] [address] Care Team Providers Care Heel Slicker Name Role Phone Ronda Perera Primary Care Provider Shamir Bello Unavailable [phone] Allergies No Known Allergies Reason For Referral [...] Insured Coverage Start Date Coverage End Date [facility] re-[id number] [address] [address] [place] [address] [id number] Queta Sanchez Self - patient is the insured Medical (General) History Medical History History ICD Code thyroid Chicken pox Joint implants/screws Surgical History Surgery Date(Month/Year)
== END 2025-03-06 16:22 | disposition home or self-care (01) ==
LOC: HO.HMCFM 15:23
PROVIDERS: PCP Physician Assistant; Visit Provider Physician Assistant
DX: Z00.00 Encounter for general adult medical examination without abnormal findings (principal); E78.5 Hyperlipidemia, unspecified; R94.4 Abnormal results of kidney function studies; Q44.6 Cystic disease of liver

== ENCOUNTER → 2025-03-06 15:22 | Outpatient (BNVA) | payer OTHER, SELFPAY | PROVIDERS: PCP Physician Assistant; Visit Provider Physician Assistant ==

== ENCOUNTER 2025-06-11 09:14 | Outpatient (REF) | payer OTHER, SELFPAY ==
--- NOTE | ~2025-06-11 | US_ITS ---
EXAMINATION: US COMPLETE ABDOMEN WITH LIVER ELASTOGRAPHY CLINICAL INFORMATION: Q44.6 - Cystic disease of liver COMPARISON: MRI on November 01, 2024 TECHNIQUE: Real-time imaging of the abdominal viscera. Noninvasive ultrasound liver fibrosis assessment is performed using Og ElastPQ point quantification shear wave elastography (pSWE) with a C5-2 MHz transducer. Multiple elastography samples are obtained. FINDINGS: PANCREAS: The visualized pancreatic head and body are normal in appearance. The remainder of the pancreas is obscured from visualization by the overlying bowel gas. ABDOMINAL AORTA: No aortic aneurysm is seen. INFERIOR VENA CAVA: Visualized portions are normal. LIVER: There are multiple an/hypoechoic lesions with increased through transmission scattered through the liver measuring up to 1 cm long axis. The liver is homogeneous otherwise. There is no biliary ductal dilation. Main portal vein is patent with normal direction of flow. There is continuous venous waveform. The right lobe measures 11 cm in length. The left lobe measures 9 cm in length. Shear wave liver elastography median stiffness is 1.2 m/s (reference: normal median stiffness is 1.3 m/s or less). IQR/median stiffness to assess sampling precision is 0.1 (reference: good quality data set is IQR/median stiffness of 0.15 or less). GALLBLADDER: The gallbladder is physiologically distended without evidence of stones, sludge, polyps, wall thickening or pericholecystic fluid. COMMON BILE DUCT: Normal in caliber measuring 0.2 cm in diameter. RIGHT KIDNEY: No hydronephrosis. No renal calculi or focal parenchymal lesions. The kidney measures 9.4 cm in maximum dimension. LEFT KIDNEY: No hydronephrosis. No renal calculi or focal parenchymal lesions. The kidney measures 9.6 cm in maximum dimension. SPLEEN: Unremarkable. The spleen measures 8 cm in maximum dimension. FREE FLUID: None seen. US/US abdomen comp w elastography IMPRESSION: 1. There are a few scattered small liver lesions that range between anechoic to slightly hypoechoic and likely represent benign hepatic cysts and hemangiomas. 2. Liver elastography: Measurements are consistent with a high probability of normal liver stiffness. REFERENCE: Society of Radiologists in Ultrasound Liver Stiffness Thresholds (2020): LIVER STIFFNESS THRESHOLDS: *Liver Stiffness equal or less than 1.3 m/s: High probability of being normal. *Liver Stiffness less than 1.7 m/s: In the absence of other known clinical signs, rules out compensated advanced chronic liver disease. *Liver Stiffness 1.7-2.1 m/s: Suggestive of compensated advanced chronic liver disease but need further test for confirmation. *Liver Stiffness over 2.1 m/s: Rules in compensated advanced chronic liver disease. *Liver Stiffness over 2.4 m/s: Suggestive of clinically significant portal hypertension. QUALITY OF DATA SET: *IQR/Median value equal or less than 0.15 implies a quality data set. *IQR/Median value over 0.15 implies a poor quality data set. SIGNIFICANT CHANGE FROM PRIOR EXAM: Significant change if liver stiffness measurement is 10% or greater from prior exam. OTHER CONSIDERATIONS: The stage of liver fibrosis may be overestimated in the setting of acute hepatitis, liver inflammation, elevated liver function tests, hepatic vascular congestion, obstructive cholestasis, non-fasting state, and infiltrative diseases such as amyloidosis and lymphoma. In some patients with NAFLD, the liver stiffness thresholds for compensated advanced chronic liver disease may be lower. In causes other than viral hepatitis and NAFLD, liver stiffness thresholds are not well established. Electronically signed by: Bubba Hein MD 06/11/2025 11:05 AM EDT
--- OUTSIDE RECORDS SUMMARY | 2025-06-11 11:01 | XMS_ITS | Patient Health Record ---
Author Organization [facility] Address [address] [place] [address] Care Team Providers Care Rail Signal Worker Name Role Phone Ronda Perera Primary Care Provider Shamir Bello Unavailable [phone] Allergies No Known Allergies Reason For Referral [...] Insured Coverage Start Date Coverage End Date [facility] re-[id number] [address] [address] [place] [address] [id number] Queta Sanchez Self - patient is the insured Medical (General) History Medical History History ICD Code thyroid Chicken pox Joint implants/screws Surgical History Surgery Date(Month/Year)
--- OUTSIDE RECORDS SUMMARY | 2025-06-11 11:01 | XMS_ITS | Clinical Summary ---
Author Organization [facility] Address [address] [place] [address] Care Team Providers Care Pharmacy Messenger Name Role Phone Pcp, No Primary Care [...] 66 05/15/2021 4:21 PM EDT Temperature 36.9 C (98.5 F) 05/15/2021 4:21 PM EDT Respiratory Rate - - Oxygen Saturation 96% [...] of 2) 2019 COVID-19 Vaccine (1 - season) 2024 Influenza Vaccine 05/02/2025 Insurance [facility] - HMO Care Teams Pharmacy Messenger Relationship Specialty Start Date End Date Pcp, No PCP - General General Medicine 05/15/21
--- OUTSIDE RECORDS SUMMARY | 2025-06-11 11:01 | XMS_ITS | Clinical Summary ---
Author Organization [facility] Address [address] [place] [address] Phone Care Team Providers Care Order Planner Name Role Phone Ronda Perera Primary Care Provider [phone] Social History Tobacco Use Types Packs/Day Years [...] Panel) 09/04/2022 Colorectal Cancer Screening: Colonoscopy 09/04/2022 HIV Screening 09/04/2022 Hepatitis C Screening 09/04/2022 Social Influencers of Health Screening 09/04/2022 Depression Screening 10/02/2024 COVID-19 Vaccine (2023-2 5 season) 2025 Influenza Vaccine (#1) 2025 HIB Vaccines Aged Out No longer [...] patient's age to complete this topic Insurance [facility] Care Teams Order Planner Relationship Specialty Start Date End Date Ronda Perera PA [address] [place] [address] PCP - General Physician Sales Service Coordinator 11/08/24
--- OUTSIDE RECORDS SUMMARY | 2025-06-11 11:01 | XMS_ITS | Clinical Summary ---
Author Organization [facility] Address [address] [place] [address] Care Team Providers Care Sports Physiologist Name Role Phone Unavailable Primary Care Provider [...]
[2025-06-11 11:12] LABS: MANUAL DIFF FLAG NO
[2025-06-11 11:19] LABS: Hematocrit 34.6 % (37.0-47.0); Hemoglobin 11.6 g/dl (12.0-16.0); Imm Gran Abs Auto 0.00 X10*3/uL (0.00-0.03); Imm Gran Pct Auto 0.0 % (0.0-0.4); Lymphocytes Absolute Auto 2.0 X10*3/uL (1.2-4.9); Mean Corpuscular HGB Conc 33.5 g/dl (31.0-35.0); Mean Corpuscular Hemoglobin 29.6 pg (27.0-33.0); Mean Corpuscular Volume 88.3 fL (80.0-98.0); NRBC Abs Auto 0.000 X10*3/uL (0.0-0.012); NRBC Pct Auto 0.0 /100WBC (0.0-0.2); Platelet Count 147 X10*3/uL (160-400); Red Blood Count 3.92 X10*6/uL (4.20-5.50); White Blood Count 3.9 X10*3/uL (4.8-10.8)
[2025-06-11 12:01] LABS: Appearance Urine Clear; Glucose Urine UA Negative (Negative); PH 5.5 (5.0-9.0); Specific Gravity - Urine 1.020 (1.005-1.025); UMIC TRIGGER UACC YES
[2025-06-11 12:05] LABS: UACC Culture Trigger YES
[2025-06-11 12:06] LABS: Hemoglobin A1C 113.1204 umol/L; Total Hemoglobin (HGBA1C) 2963.1818 umol/L
[2025-06-11 12:25] LABS: Alanine Aminotransferase 29 U/L (0-31); Albumin Level 4.4 g/dL (3.5-5.0); Alkaline Phosphatase 52 U/L (39-117); Anion Gap 14 (12-20); Aspartate Amino Transferase 28 U/L (5-31); Blood Urea Nitrogen 16 mg/dL (9-16); Calcium 8.8 mg/dL (8.4-10.2); Carbon Dioxide 27 mmol/L (22-29); Chloride 108 mmol/L (96-108); Cholesterol 175 mg/dL (<200); Estimated Glomerular Filt Rate > 60; HDL Cholesterol 54 mg/dL (>40); Potassium 4.1 mmol/L (3.3-5.1); Sodium 145 mmol/L (135-145); Total Protein 7.5 g/dL (6.5-8.0); Triglycerides 97 mg/dL (<150)
== END 2025-06-11 09:15 | disposition home or self-care (01) ==
LOC: HO.US 09:14
PROVIDERS: PCP Physician Assistant; Visit Provider Physician Assistant
DX: Q44.6 Cystic disease of liver (principal); I10 Essential (primary) hypertension; E78.5 Hyperlipidemia, unspecified; R94.4 Abnormal results of kidney function studies; R73.01 Impaired fasting glucose
CPT/HCPCS: 36415; 76700; 76981; 80053; 80061; 81001; 81003; 83036; 84443; 85025; 87086; 87088; 87186

== ENCOUNTER → 2025-06-11 09:19 | Outpatient (BNV) | payer OTHER, SELFPAY | PROVIDERS: PCP Physician Assistant; Visit Provider Radiology Diagnostic Radiology | DX: K76.89 Other specified diseases of liver (principal) | CPT/HCPCS: 76700 ==

== ENCOUNTER 2025-09-03 10:20 | Outpatient (AMB) | payer OTHER, SELFPAY ==
--- NOTE | 2025-09-03 10:25 | A.OFFVIS_ITS ---
Vital Signs 09/03/25 10:27 Height 5 ft 3 in Weight 174 lb 2.643 oz BMI 30.8 BP 141/69 H Blood Pressure Location Lt brachial Position Sitting Pulse 75 Intake Visit Reasons: Cystic Disease of Liver Intake Note: Queta presents in the office as a new patient for cystic disease of liver CC: She states she has no symptoms - she has had issues with her liver for 2 years now. Foreign Correspondent Required: No Allergies No Known Allergies Allergy (Verified 02/13/25 10:20) HPI Comments Details: This is a 55 year old female presenting for evaluation of hepatic cysts. The cysts were incidentally discovered on an ultrasound in 2023 following an episode of stomach pain. A subsequent MRI of the liver was performed 10/2024 without contrast due to difficulty with IV access. These revealed numerous subcentimeter cysts. An elastography was also performed and showed the same findings. The patient is asymptomatic and denies any issues related to the cysts. There is no family history of liver disease, and the patient denies alcohol use. In terms of colon cancer screening, the patient underwent a colonoscopy in 2019, during which one polyp was removed. She was given 7 year recall per documentation. She also recently completed cologuard through her insurance which was negative. --- Pt was informed and consented to the use of ambient scribe for this encounter. --- [facility] Medical History Obesity due to excess calories with serious comorbidity Dyslipidemia Anemia Vitamin D deficiency Tubular adenoma of colon Obesity with serious comorbidity Microcalcifications of the breast Hyperthyroidism HTN (hypertension) Surgical History History of colonoscopy Family History Mother Breast cancer Father Hypertension Sister Hypertension Social History Household Members: Spouse and Children Housing: House Patient Tobacco Use Status: Never used Tobacco e-Cigarette/Vaping Use: Never Used Second Hand Smoke Exposure: No service: No Current occupational status: employed 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 [employer] Current occupational exposures/hazards: No Cognitive needs: No Hearing needs: No Vision needs: No Review of Systems Const All systems reviewed & are unremarkable except as noted in HPI and below Physical Exam Exam Exam: No apparent distress Nonicteric Abdomen soft, nondistended Alert and oriented x3, normal gait Vital Signs: Last Vital Signs Pulse 75 09/03/25 10:27 BP 141/69 H 09/03/25 10:27 BMI result Body Mass Index 30.8 Assessment & Plan Assessment & Plan (1) Liver cyst: Code(s): K76.89 - Other specified diseases of liver Category: Medical (2) Personal history of colonic polyps: Code(s): Z86.0100 - Personal history of colon polyps, unspecified Category: Medical Plan 1. Hepatic Cysts The patient has asymptomatic, incidentally discovered hepatic cysts. A prior MRI was sub-optimal as it was performed without IV contrast, precluding definitive characterization. While the cysts appear benign, needs liver protocol MRI (with contrast). Plan: - MRI liver protocol - If the MRI confirms benign findings, the patient will be notified via the patient portal with no further GI follow-up required for this issue. - If the MRI reveals any actionable findings, the patient will be scheduled for a follow-up office visit to discuss further management. 2. History of colon polyp - The patient had a colonoscopy in September 2020 with removal of one polyp. Next colo recommended in 2026. Pt advised that cologuard not applicable in her case and should get scheduled for a colonoscopy in 2026 regardless. Orders: Orders MR abdomen wo/w con Today K76.89 - Other specified diseases of liver Coding Level of Care Code New Pt Level 4 (03992) Diagnoses Liver cyst K76.89 Personal history of colonic polyps Z86.0100
[2025-09-03 10:27] VITALS: BP 141/69; PULSE 75; BMI 30.8
--- OUTSIDE RECORDS SUMMARY | 2025-09-03 11:51 | XMS_ITS | Patient Health Record ---
Author Organization [facility] Address [address] [place] [address] Care Team Providers Care [facility] Center Assistant Name Role Phone Ronda Perera Primary Care Provider Shamir Bernabe Unavailable [phone] Allergies No Known Allergies Reason For Referral [...] Insured Coverage Start Date Coverage End Date [facility] [id number] [address] [address] [place] [address] [id number] Queta Sanchez Self - patient is the insured Medical (General) History Medical History History ICD Code thyroid Chicken pox Joint implants/screws Surgical History Surgery Date(Month/Year)
--- OUTSIDE RECORDS SUMMARY | 2025-09-03 11:51 | XMS_ITS | Clinical Summary ---
Author Organization [facility] Address [address] [place] [address] Phone Care Team Providers Care Pipe Smoking Machine Offbearer Name Role Phone Ronda Perera Primary Care Provider [phone] Social History Tobacco Use Types Packs/Day Years Used Date Smoking Tobacco: Never Assessed Comments Unknown Sex and Gender Information Value Date Recorded Sex Assigned at Not on file Legal Sex Female 5:56 AM EST Gender Identity Not on file Sexual Orientation Not on file Plan of Treatment Health Maintenance Due Date Last Done Comments Breast Cancer Screening 1969 Colorectal Cancer Screening: Colonoscopy 1969 DTaP,Tdap,and Td Vaccines (1 - Tdap) 1988 Hepatitis B Vaccines (1 of 3 - 19+ 3-dose series) 1988 Cervical Cancer Screening: P ap Smear 1990 Pneumococcal Vaccine: 50+ Ye ars (1 of 1 - PCV) 2019 Zoster Vaccines (1 of 2) 2019 Cholesterol Screening (Lipid Panel) 09/04/2022 HIV Screening 09/04/2022 Hepatitis C Screening 09/04/2022 Social Influencers of Health Screening 09/04/2022 Depression Screening 10/02/2024 COVID-19 Vaccine ( - 2024-2 6 season) 2025 Influenza Vaccine (#1) 2025 RSV Immunization Adult Patie nts (1 - 1-dose 75+ series) 2044 HIB Vaccines Aged Out No longer eligi [...] patient's age to complete this topic Insurance [facility] Care Teams Pipe Smoking Machine Offbearer Relationship Specialty Start Date End Date Ronda Perera PA [address] [place] [address] PCP - General Physician Harness Worker 11/08/24
--- OUTSIDE RECORDS SUMMARY | 2025-09-03 11:52 | XMS_ITS | Clinical Summary ---
Author Organization [facility] Address [address] [place] [id number] Care Team Providers Care Service Inspector Name Role Phone Pcp, No Primary Care [...] Vaccine (1 of 2) 2019 Influenza Vaccine 05/02/2025 COVID-19 Vaccine (1 - 2024-25 season) 2025 RSV Vaccine 50 years and old er and Patients (1 - 1-dose 75+ series) 2044 Insurance [facility] [place] Teams Service Inspector Relationship Specialty Start Date End Date Pcp, No PCP - General General Medicine 05/15/21
== END 2025-09-03 15:42 | disposition home or self-care (01) ==
LOC: HO.HGI 10:21
PROVIDERS: PCP Physician Assistant; Visit Provider Internal Medicine
DX: K76.89 Other specified diseases of liver (principal); Z86.0100 Personal history of colon polyps, unspecified
CPT/HCPCS: 99204